=== PATIENT | male | born 1950 | race Caucasian/White ===

== ENCOUNTER 2018-09-17 16:32 | Emergency (ER) | payer OTHER ==
[~2018-09-17] VITALS: Ht 172.7 cm; Wt 73.6 kg
[~2018-09-17 16:32] MED LIST: ASPI81TA3; GLUC850T; GLUCOSAMINE; HYDR25TA6; LISI20TA5; THERGRAN
--- NOTE | 2018-09-17 17:10 | REP ---
Clinical: Altered mental status and possible acute cerebrovascular accident . Findings: Age-related atrophy and microvascular ischemic changes are appreciated. The ventricles and sulci are symmetric. Thorne-white differentiation is maintained. There is no evidence for acute intracranial hemorrhage, mass/mass effect, pathology or infarction. No extra-axial fluid collection. Calvarium is intact. Paranasal sinuses and mastoid air cells are clear. Impression: Atrophy and microvascular ischemic changes. No acute intracranial hemorrhage, infarction, or mass/mass effect. Electronically Signed by Gary Moise MD 09/17/2018 05:02 P
[2018-09-17 17:11] LABS: BASO # 0.1 10^3/uL (0.0-0.2); BASO % 0.3 % (0.0-1.0); EOS # 0.1 10^3/uL (0.0-0.50); EOS % 0.3 % (0.0-3.0); HEMATOCRIT 44.8 % (42.0-52.0); HEMOGLOBIN 14.5 g/dl (13.5-17.5); LYMPH # 1.3 10^3/uL (1.5-4.5); LYMPH % 5.4 % (24.0-44.0); MEAN CORPUSCULAR HEMOGLOBIN 31.2 pg (27.0-33.0); MEAN CORPUSCULAR HGB CONC 32.4 g/dl (32.0-36.5); MEAN CORPUSCULAR VOLUME 96.3 fl (80.0-96.0); MONO # 1.6 10^3/uL (0.0-0.8); MONO % 6.3 % (0.0-5.0); NEUTROPHILS # 21.6 10^3/uL (1.8-7.7); NEUTROPHILS % 86.8 % (36.0-66.0); PLATELET COUNT, AUTOMATED 362 10^3/uL (150-450); RED BLOOD COUNT 4.65 10^6/uL (4.30-6.10); WHITE BLOOD COUNT 24.8 10^3/uL (4.0-10.0)
--- NOTE | 2018-09-17 17:12 | REP ---
Clinical: Altered mental status. Cerebrovascular accident . Comparison: 10/16/2008 . Findings: The mediastinum and cardiac silhouette are stable and within normal limits for portable technique. The lung perez demonstrate chronic-appearing changes without acute consolidation, effusion, or pneumothorax. Skeletal structures are intact. Impression: Chronic-appearing changes. Electronically Signed by Gary Moise MD 09/17/2018 05:04 P
[2018-09-17 17:20] LABS: INR 0.94; PROTHROMBIN TIME 12.7 SECONDS (12.1-14.4)
[2018-09-17 17:21] LABS: PARTIAL THROMBOPLASTIN TIME 29.2 SECONDS (25.4-37.6)
[2018-09-17] MEDS ORDERED: ISOVUE-370 76% 100ML VIAL (Q9967) As Ordered ONE (17:26)
[2018-09-17] MEDS ORDERED: NS 500 ML IV ONE (17:30)
[2018-09-17] MEDS ORDERED: ADACEL/BOOSTRIX VACCINE (DIPHTH/PERTUSS/ACELL/TETANUS)0.5ML SYR (90715) IM ONE (17:30)
[2018-09-17 17:44] LABS: CALCIUM LEVEL 9.3 MG/DL (8.8-10.2); CREATININE FOR GFR 1.7 MG/DL (0.70-1.30); GLOMERULAR FILTRATION RATE 42.6 (>42); MB/CK RELATIVE INDEX 6.6 (< OR =4); POTASSIUM SERUM 4.1 MEQ/L (3.5-5.1); TROPONIN I 0.12 NG/ML (< 0.10)
[2018-09-17] MEDS ORDERED: CLONI1TA PO (17:52)
[2018-09-17] MEDS ORDERED: HEAL1TAB PO (17:52)
[2018-09-17] MEDS ORDERED: FURO20TA2 PO (17:52)
[2018-09-17] MEDS ORDERED: METO100T5 PO (17:52)
[2018-09-17] MEDS ORDERED: AMLO10TA5 PO (17:52)
[2018-09-17] MEDS ORDERED: ROSU40TA3 PO (17:52)
[2018-09-17] MEDS ORDERED: MVI,5VIA5 IV (17:52)
[2018-09-17] MEDS ORDERED: D3 H2000 PO (17:52)
[2018-09-17] MEDS ORDERED: TURM500C PO (17:52)
[2018-09-17 18:09] LABS: ALBUMIN 3.7 GM/DL (3.2-5.2); BILIRUBIN,TOTAL 0.2 MG/DL (0.2-1.0); TOTAL PROTEIN 7.5 GM/DL (6.4-8.2)
[2018-09-17 18:14] VITALS: BP 178/82
--- NOTE | 2018-09-17 18:16 | REP ---
Clinical: Weakness. Technique: Axial contrast enhanced images of the head that using angiographic technique with 100 ml Isovue 370 intravenous contrast material. Findings: Arterial vasculature including lime of Amaya and posterior circulation as well as a circulation to the bilateral hemispheres is symmetric and normal. Impression: Normal CT angiography of the head. Electronically Signed by Gary Moise MD 09/17/2018 06:08 P
--- NOTE | 2018-09-17 18:20 | REP ---
Clinical: Weakness. Technique: Axial contrast enhanced images of the neck using angiographic technique with multiplanar re-formations. 100 ml Isovue 370 intravenous contrast material administered without complication. Findings: The bilateral common carotid arteries as well as the internal and external carotid arteries from the level of the thoracic arch to the mid brain demonstrate symmetric normal enhancement. Mild atherosclerotic changes at the level of the right carotid bulb identified. The vertebral basilar system appears symmetric and normal bilaterally moderate atherosclerotic calcifications noted at the level of the skull base. Impression: Minimal atherosclerotic plaquing noted. Enhancement of the bilateral carotid arteries and vertebral arteries are relatively normal and without evidence for significant areas of stenosis or occlusion. Electronically Signed by Gary Moise MD 09/17/2018 06:11 P
--- NOTE | 2018-09-17 21:01 | ECGEPIP ---
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
== END 2018-09-17 18:18 | disposition short-term general hospital (02) ==
LOC: M ED 16:32
DX: I63.9 Cerebral infarction, unspecified (principal); R00.0 Tachycardia, unspecified; I25.10 Atherosclerotic heart disease of native coronary artery without angina pectoris; E11.9 Type 2 diabetes mellitus without complications; I10 Essential (primary) hypertension; Z95.5 Presence of coronary angioplasty implant and graft; Z72.0 Tobacco use; Z79.82 Long term (current) use of aspirin; Z79.84 Long term (current) use of oral hypoglycemic drugs; Z79.899 Other long term (current) drug therapy; Z88.0 Allergy status to penicillin
CPT/HCPCS: 70450; 70496; 70498; 71045; 80053; 82550; 82553; 83605; 84484; 85025; 85610; 85730; 86850; 86900; 86901; 87040; 90471; 90715; 93005; 93041; 94760; 99291; Q9967

== ENCOUNTER → 2021-03-23 | Outpatient (CLI) | payer OTHER ==
[~2021-03-23] MED LIST changes: +AMLO1TAB25 PO; +CLONI1TA PO; +D3 H2000 PO; +FURO20TA2 PO; +HEAL1TAB PO; +METO100T5 PO; +MVI,5VIA5 IV; +ROSU40TA4 PO; +TURM500C PO
== END ==
LOC: M SLEEP 20:00
PROVIDERS: ATTEND Internal Medicine
DX: G47.33 Obstructive sleep apnea (adult) (pediatric) (principal)

== ENCOUNTER → 2021-06-16 | Outpatient (CLI) | payer OTHER | LOC: M SLEEP 20:00 | PROVIDERS: ATTEND Internal Medicine | DX: G47.33 Obstructive sleep apnea (adult) (pediatric) (principal) ==

== ENCOUNTER → 2022-07-16 | Outpatient (CLI) | payer MEDICARE, OTHER ==
[~2022-07-16] MED LIST changes: +ASPI81CH33 PO; +BICA50TA9 PO; +CARV25TA PO; +DOXA1TAB67 PO; +FINA5TAB2 PO; +FLOM0.4C39 PO; +IRON65TA2 PO; +ISOS1TAB35 PO; +JANU25TA PO; +LISI5TAB11 PO; +MIRT-62 PO; +NESI12.5 PO; +PRES10CA2 PO; +PROZ20CA11 PO
== END ==
LOC: M ONCR 14:14
PROVIDERS: ATTEND General Practice
DX: C61 Malignant neoplasm of prostate (principal)

== ENCOUNTER → 2022-07-16 | Outpatient (CLI) | payer MEDICARE, OTHER ==
[2022-07-16 15:06] LABS: BASO % 0.4 % (0.0-1.0); EOS # 0.2 10^3/uL (0.0-0.5); EOS % 2.3 % (0.0-3.0); HEMATOCRIT 41.6 % (42.0-52.0); HEMOGLOBIN 12.7 g/dl (13.5-17.5); LYMPH # 0.7 10^3/uL (1.5-5.0); LYMPH % 9.5 % (24.0-44.0); MEAN CORPUSCULAR HEMOGLOBIN 28.9 pg (27.0-33.0); MEAN CORPUSCULAR HGB CONC 30.5 g/dl (32.0-36.5); MEAN CORPUSCULAR VOLUME 94.8 fl (80.0-96.0); MONO # 0.5 10^3/uL (0.0-0.8); MONO % 6.9 % (2.0-8.0); NEUTROPHILS # 5.5 10^3/uL (1.5-8.5); NEUTROPHILS % 80.5 % (36.0-66.0); PLATELET COUNT, AUTOMATED 141 10^3/uL (150-450); RED BLOOD COUNT 4.39 10^6/uL (4.30-6.10); WHITE BLOOD COUNT 6.9 10^3/uL (4.0-10.0)
[2022-07-16 15:20] LABS: PROSTATIC SPECIFIC AG MONITOR 6.15 NG/ML (< 4.00)
[2022-07-16 15:22] LABS: BILIRUBIN,TOTAL 0.4 MG/DL (0.3-1.2); CALCIUM LEVEL 8.5 MG/DL (8.3-10.6); CHOLESTEROL RISK RATIO 2.57 (<5); CREATININE FOR GFR 1.85 MG/DL (0.70-1.30); GLOMERULAR FILTRATION RATE 38.2 (>42); HDL CHOLESTEROL 34.2 MG/DL (>40); LDL CHOLESTEROL 18.6 MG/DL (<100); NON-HDL-C 53.8 MG/DL; POTASSIUM SERUM 4.7 MMOL/L (3.5-5.1); TOTAL PROTEIN 7.1 G/DL (5.7-8.2)
== END ==
LOC: M ONCR 13:15
PROVIDERS: ATTEND General Practice
DX: C61 Malignant neoplasm of prostate (principal); E11.9 Type 2 diabetes mellitus without complications; J44.9 Chronic obstructive pulmonary disease, unspecified; N18.30 Chronic kidney disease, stage 3 unspecified; Z65.5 Exposure to disaster, war and other hostilities; Z79.82 Long term (current) use of aspirin; Z79.84 Long term (current) use of oral hypoglycemic drugs; Z79.899 Other long term (current) drug therapy; Z80.42 Family history of malignant neoplasm of prostate; Z80.8 Family history of malignant neoplasm of other organs or systems; Z86.73 Personal history of transient ischemic attack (TIA), and cerebral infarction without residual deficits; Z86.79 Personal history of other diseases of the circulatory system; Z87.891 Personal history of nicotine dependence; Z88.0 Allergy status to penicillin; Z95.5 Presence of coronary angioplasty implant and graft; Z99.3 Dependence on wheelchair
CPT/HCPCS: 36415; 80053; 80061; 83036; 84153; 84403; 85025; G0463

== ENCOUNTER → 2022-07-29 | Outpatient (CLI) | payer MEDICARE, OTHER ==
[~2022-07-29] MED LIST changes: +LEUPROLIDE 22.5 MG IM ONE; +TRIA1CR80 TOP
== END ==
LOC: M ONCR 15:15
PROVIDERS: ATTEND General Practice
DX: C61 Malignant neoplasm of prostate (principal)
CPT/HCPCS: 96402; G0463; J9217

== ENCOUNTER 2022-08-22 15:11 | Outpatient (RCR) | payer MEDICARE, OTHER ==
[~2022-08-22 15:11] MED LIST changes: -LEUPROLIDE 22.5 MG IM ONE
== END 2022-08-24 ==
LOC: M ONCR 15:11
PROVIDERS: ATTEND General Practice
DX: C61 Malignant neoplasm of prostate (principal)

== ENCOUNTER 2022-09-16 13:59 | Outpatient (RCR) | payer OTHER | END 2022-09-24 | LOC: M ONCR 13:59 | PROVIDERS: ATTEND General Practice | DX: C61 Malignant neoplasm of prostate (principal) ==

== ENCOUNTER → 2022-09-16 | Outpatient (CLI) | payer OTHER, MEDICARE | LOC: M RAD 12:27 | DX: I73.9 Peripheral vascular disease, unspecified (principal) ==

== ENCOUNTER → 2022-10-29 | Outpatient (CLI) | payer MEDICARE, OTHER ==
[~2022-10-29] VITALS: Ht 175.3 cm; Wt 73.6 kg
[~2022-10-29] MED LIST changes: +LEUPROLIDE 22.5 MG IM ONE
[2022-10-29 15:12] VITALS: BP 132/64; O2SAT 91
== END ==
LOC: M ONCR 14:39
PROVIDERS: ATTEND General Practice
DX: C61 Malignant neoplasm of prostate (principal); Z79.818 Long term (current) use of other agents affecting estrogen receptors and estrogen levels; Z92.3 Personal history of irradiation
CPT/HCPCS: G0463; J9217

== ENCOUNTER → 2022-12-17 | Outpatient (CLI) | payer OTHER, MEDICARE ==
[~2022-12-17] MED LIST changes: -LEUPROLIDE 22.5 MG IM ONE
[2022-12-17 17:03] LABS: PROSTATIC SPECIFIC AG MONITOR 0.04 NG/ML (< 4.00)
[2022-12-17 17:09] LABS: TESTOSTERONE < 7 NG/DL (241-827)
== END ==
LOC: M ONCR 14:46
PROVIDERS: ATTEND General Practice
DX: C61 Malignant neoplasm of prostate (principal)

== ENCOUNTER → 2022-12-22 | Outpatient (CLI) | payer MEDICARE, OTHER | LOC: M ONCR 14:02 | PROVIDERS: ATTEND General Practice | DX: C61 Malignant neoplasm of prostate (principal); Z79.818 Long term (current) use of other agents affecting estrogen receptors and estrogen levels; Z92.3 Personal history of irradiation; Z87.891 Personal history of nicotine dependence; Z88.0 Allergy status to penicillin; Z79.82 Long term (current) use of aspirin; S32.010A Wedge compression fracture of first lumbar vertebra, initial encounter for closed fracture; X58.XXXA Exposure to other specified factors, initial encounter ==

== ENCOUNTER → 2023-01-29 | Outpatient (CLI) | payer MEDICARE, OTHER ==
[~2023-01-29] MED LIST changes: +LEUPROLIDE 45MG SYRINGE KIT (LUPRON DEPOT) (FOR ONCOLOGY) IM ONE; -MIRT-62 PO; +MIRT-88 PO
== END ==
LOC: M ONCR 15:21
PROVIDERS: ATTEND General Practice
DX: C61 Malignant neoplasm of prostate (principal); R23.2 Flushing; Z71.2 Person consulting for explanation of examination or test findings; Z79.818 Long term (current) use of other agents affecting estrogen receptors and estrogen levels; Z79.82 Long term (current) use of aspirin; Z79.84 Long term (current) use of oral hypoglycemic drugs; Z87.891 Personal history of nicotine dependence; Z79.899 Other long term (current) drug therapy; Z88.0 Allergy status to penicillin; Z88.1 Allergy status to other antibiotic agents; Z92.3 Personal history of irradiation
CPT/HCPCS: 96402; G0463; J9217

== ENCOUNTER → 2023-02-10 | Outpatient (CLI) | payer OTHER ==
[~2023-02-10] MED LIST changes: -LEUPROLIDE 45MG SYRINGE KIT (LUPRON DEPOT) (FOR ONCOLOGY) IM ONE
== END ==
LOC: M SOG 07:52
PROVIDERS: ATTEND Physician Assistant
DX: M25.531 Pain in right wrist (principal); M19.031 Primary osteoarthritis, right wrist

== ENCOUNTER 2023-03-16 14:54 | Observation (INO) | payer MEDICARE, OTHER ==
[~2023-03-16] VITALS: Ht 172.7 cm; Wt 67.1 kg
[~2023-03-16 14:54] MED LIST changes: +ALBU2.5V10 NEB; +JARD1TAB3 PO; +LUPR22.5 IM; +MUCI600T31 PO; +VITA100093 PO
[2023-03-16 16:43] LABS: BASO % 0.3 % (0.0-1.0); EOS # 0.1 10^3/uL (0.0-0.5); EOS % 2.4 % (0.0-3.0); LYMPH # 0.2 10^3/uL (1.5-5.0); LYMPH % 6.2 % (24.0-44.0); MEAN CORPUSCULAR HEMOGLOBIN 31.9 pg (27.0-33.0); MEAN CORPUSCULAR HGB CONC 31.3 g/dl (32.0-36.5); MEAN CORPUSCULAR VOLUME 102.1 fl (80.0-96.0); MONO # 0.3 10^3/uL (0.0-0.8); MONO % 9.5 % (2.0-8.0); NEUTROPHILS # 2.7 10^3/uL (1.5-8.5); PLATELET COUNT, AUTOMATED 106 10^3/uL (150-450); RED BLOOD COUNT 1.91 10^6/uL (4.30-6.10); WHITE BLOOD COUNT 3.4 10^3/uL (4.0-10.0)
[2023-03-16 16:59] LABS: HEMATOCRIT 19.5 % (42.0-52.0); HEMOGLOBIN 6.1 g/dl (13.5-17.5)
[2023-03-16 17:08] LABS: INR 1.21
[2023-03-16 17:09] LABS: PARTIAL THROMBOPLASTIN TIME 32.5 SECONDS (24.8-34.2)
[2023-03-16 17:13] LABS: CALCIUM LEVEL 9.1 MG/DL (8.3-10.6); CREATININE FOR GFR 2.22 MG/DL (0.70-1.30); GLOMERULAR FILTRATION RATE 30.9 (>42); POTASSIUM SERUM 3.7 MMOL/L (3.5-5.1)
[2023-03-16 18:30] VITALS: BP 111/56; TEMP 98.4; O2SAT 100
[2023-03-16 18:30] LABS: ALBUMIN 2.9 G/DL (3.2-5.2); ALKALINE PHOSPHATASE 47 U/L (46-116); ALT/SGPT < 9 U/L (7.0-40); AST/SGOT < 8 U/L (<34); BILIRUBIN,DIRECT < 0.1 MG/DL (<0.4); BILIRUBIN,TOTAL 0.2 MG/DL (0.3-1.2); TOTAL PROTEIN 5.6 G/DL (5.7-8.2)
[2023-03-16 18:46] VITALS: BP 116/56; TEMP 97.3; O2SAT 100
[2023-03-16 20:28] VITALS: BP 132/63; TEMP 97.2
[2023-03-16] MEDS ORDERED: MED REC IN PROGRESS XX SCH (20:40)
[2023-03-16 20:44] VITALS: BP 127/61; TEMP 96.9; O2SAT 91
[2023-03-16 21:15] VITALS: BP 127/58; TEMP 97.1; O2SAT 94
[2023-03-16] MEDS ORDERED: NICO4LOZ34 MT (21:15)
[2023-03-16] MEDS ORDERED: HOME MED LIST COMPLETE! XX SCH (21:20)
[2023-03-16] MEDS ORDERED: AMLO1TAB25 PO (21:27)
[2023-03-16] MEDS ORDERED: ASPI81TA26 PO (21:28)
[2023-03-16] MEDS ORDERED: CARV25TA PO (21:29)
[2023-03-16] MEDS ORDERED: DOXA1TAB67 PO (21:30)
[2023-03-16] MEDS ORDERED: FERR325T3 PO (21:31)
[2023-03-16] MEDS ORDERED: FINA5TAB2 PO (21:32)
[2023-03-16] MEDS ORDERED: FLUO20CA22 PO (21:33)
[2023-03-16] MEDS ORDERED: LISI5TAB11 PO (21:34)
[2023-03-16] MEDS ORDERED: MIRT1TAB15 PO (21:35)
[2023-03-16] MEDS ORDERED: ROSU40TA4 PO (21:36)
[2023-03-16] MEDS ORDERED: ACETAMINOPHEN TAB 650MG DOSE (2X325MG) PO PRN (21:55)
[2023-03-16] MEDS ORDERED: ALBUTEROL SULFATE 2.5MG/0.5ML INH NEB SOLN NEB PRN (22:00)
[2023-03-16 23:40] VITALS: BP 142/63; TEMP 97.4; O2SAT 90
[2023-03-17] MEDS ORDERED: GLUCOSE 4GM CHEW TABLET PO PRN (00:05)
[2023-03-17] MEDS ORDERED: DEXTROSE 50% 50ML SYRINGE IV PRN (00:05)
[2023-03-17] MEDS ORDERED: GLUCAGON INJ 1MG VIAL SC PRN (00:05)
[2023-03-17 00:53] LABS: HEMATOCRIT 25.5 % (42.0-52.0); HEMOGLOBIN 7.9 g/dl (13.5-17.5)
[2023-03-17 00:58] LABS: PERCENT SATURATION 67.7 % (19.7-50.0)
[2023-03-17 01:01] LABS: FOLATE 16.88 NG/ML (>5.4)
[2023-03-17 04:00] VITALS: BP 130/59; TEMP 97.7; O2SAT 92
[2023-03-17 04:57] LABS: HEMOGLOBIN 7.9 g/dl (13.5-17.5); MEAN CORPUSCULAR HEMOGLOBIN 30.7 pg (27.0-33.0); MEAN CORPUSCULAR HGB CONC 31.6 g/dl (32.0-36.5); MEAN CORPUSCULAR VOLUME 97.3 fl (80.0-96.0); PLATELET COUNT, AUTOMATED 110 10^3/uL (150-450); RED BLOOD COUNT 2.57 10^6/uL (4.30-6.10); WHITE BLOOD COUNT 4.1 10^3/uL (4.0-10.0)
[2023-03-17 05:21] LABS: CALCIUM LEVEL 9.2 MG/DL (8.3-10.6); CREATININE FOR GFR 2.01 MG/DL (0.70-1.30); GLOMERULAR FILTRATION RATE 34.6 (>42); MAGNESIUM LEVEL 1.9 MG/DL (1.8-2.4); POTASSIUM SERUM 3.5 MMOL/L (3.5-5.1)
[2023-03-17 07:09] LABS: FOLATE 15.2 NG/ML (>5.4)
[2023-03-17] MEDS: INSULIN LISPRO (NovoLOG) PER UNIT SC SCH ×2 (07:30→12:00)
[2023-03-17 07:47] VITALS: BP 125/57; TEMP 97.5; O2SAT 90
[2023-03-17 08:29] VITALS: BP 129/57
[2023-03-17] MEDS ORDERED: lisinopriL 5 MG TAB PO SCH (09:00)
[2023-03-17] MEDS ORDERED: DOXAZOSIN MESYLATE 4 MG TAB PO SCH (09:00)
[2023-03-17] MEDS ORDERED: FINASTERIDE 5MG TAB PO SCH (09:00)
[2023-03-17] MEDS ORDERED: VITAMIN D 1,000 INTERNATIONAL UNITS TABLET PO SCH (09:00)
[2023-03-17] MEDS ORDERED: ISOSORBIDE MON. (IMDUR) 30MG XR TAB PO SCH (09:00)
[2023-03-17] MEDS ORDERED: ROSUVASTATIN 10 MG TAB (CRESTOR) PO SCH (09:00)
[2023-03-17] MEDS ORDERED: FLUoxetine 20MG CAP PO SCH (09:00)
[2023-03-17] MEDS ORDERED: TAMSULOSIN 0.4 MG CAP PO SCH (09:00)
[2023-03-17] MEDS ORDERED: FERROUS SULFATE 325MG TAB PO SCH (09:00)
[2023-03-17] MEDS ORDERED: NICOTINE 14 MG/24 HR TRANSDERMAL TD SCH (09:00)
[2023-03-17] MEDS ORDERED: PROTPAK PO (10:38)
[2023-03-17 11:40] VITALS: BP 125/55; TEMP 97.6; O2SAT 92
[2023-03-17] MEDS ORDERED: PROT1TAB2 PO (11:49)
[2023-03-17] MEDS ORDERED: INSULIN LISPRO (NovoLOG) PER UNIT SC SCH (21:00)
== END 2023-03-17 13:46 | disposition home or self-care (01) ==
LOC: M ED 14:54 → INTOOBSV 21:07 → M ED INP 21:07 → M PCU 23:05
PROVIDERS: ADMIT Internal Medicine; ATTEND Internal Medicine
DX: D64.9 Anemia, unspecified (principal); N18.32 Chronic kidney disease, stage 3b; I12.9 Hypertensive chronic kidney disease with stage 1 through stage 4 chronic kidney disease, or unspecified chronic kidney disease; Z85.46 Personal history of malignant neoplasm of prostate; I25.10 Atherosclerotic heart disease of native coronary artery without angina pectoris; Z98.61 Coronary angioplasty status; G47.33 Obstructive sleep apnea (adult) (pediatric); Z87.891 Personal history of nicotine dependence; Z86.73 Personal history of transient ischemic attack (TIA), and cerebral infarction without residual deficits; D47.2 Monoclonal gammopathy; E11.9 Type 2 diabetes mellitus without complications; F32.A Depression, unspecified; E78.5 Hyperlipidemia, unspecified; Z79.82 Long term (current) use of aspirin; Z79.899 Other long term (current) drug therapy; Z88.0 Allergy status to penicillin
CPT/HCPCS: 36415; 36430; 80048; 80076; 80503; 82607; 82728; 82746; 83550; 83735; 85014; 85018; 85025; 85027; 85046; 85610; 85730; 86850; 86900; 86901; 86920; 87486; 87581; 87633; 87798; 93005; 97161; 97165; 97530; 99285; G0378; P9016

== ENCOUNTER → 2023-03-24 | Outpatient (CLI) | payer OTHER, MEDICARE ==
[~2023-03-24] MED LIST changes: +ASPI81TA26 PO; +FERR325T3 PO; +FLUO20CA22 PO; +MIRT1TAB15 PO; +NICO4LOZ34 MT; +PROT1TAB2 PO; +PROTPAK PO
== END ==
LOC: M ONCR 14:09
PROVIDERS: ATTEND General Practice
DX: D64.9 Anemia, unspecified (principal); D47.2 Monoclonal gammopathy; C61 Malignant neoplasm of prostate; Z79.818 Long term (current) use of other agents affecting estrogen receptors and estrogen levels; Z92.3 Personal history of irradiation

== ENCOUNTER → 2023-04-13 | Outpatient (REF) | payer OTHER ==
[~2023-04-13] MED LIST changes: +CEPH500C PO; +CETI10CH PO; +FAMO20TA PO; +FERR324T21 PO; +LISI10TA22 PO; +NITR0.4S14 SL; +REFR0.5D8 OP
== END ==
LOC: M LAB REF 09:30
PROVIDERS: ATTEND Specialist
DX: D47.2 Monoclonal gammopathy (principal)

== ENCOUNTER 2023-05-04 07:09 | Day surgery (SDC) | payer MEDICARE, OTHER ==
[~2023-05-04] VITALS: Ht 172.7 cm; Wt 70.9 kg
[~2023-05-04 07:09] MED LIST changes: +LIDOCAINE W/EPINEPHRINE 1% 20ML VIAL XX ONE; +OCUVTAB4 PO; +SODIUM BICARBONATE 8.4% INJ 50MEQ 50ML VIAL XX ONE
[2023-05-04] MEDS ORDERED: BACITRACIN OINTMENT 30GM TUBE As Ordered ONE (07:50)
[2023-05-04 08:41] VITALS: BP 136/65; TEMP 97.3; O2SAT 95
== END 2023-05-04 09:05 | disposition home or self-care (01) ==
LOC: M SDC 07:09
PROVIDERS: ATTEND Orthopaedic Surgery Hand Surgery
DX: G56.01 Carpal tunnel syndrome, right upper limb (principal); I25.10 Atherosclerotic heart disease of native coronary artery without angina pectoris; I25.2 Old myocardial infarction; Z98.61 Coronary angioplasty status; I12.9 Hypertensive chronic kidney disease with stage 1 through stage 4 chronic kidney disease, or unspecified chronic kidney disease; N18.30 Chronic kidney disease, stage 3 unspecified; E11.9 Type 2 diabetes mellitus without complications; E78.5 Hyperlipidemia, unspecified; K21.9 Gastro-esophageal reflux disease without esophagitis; Z86.73 Personal history of transient ischemic attack (TIA), and cerebral infarction without residual deficits; G47.33 Obstructive sleep apnea (adult) (pediatric); Z92.3 Personal history of irradiation; Z79.51 Long term (current) use of inhaled steroids; Z87.891 Personal history of nicotine dependence; Z88.0 Allergy status to penicillin; Z88.8 Allergy status to other drugs, medicaments and biological substances; J44.9 Chronic obstructive pulmonary disease, unspecified

== ENCOUNTER 2023-06-15 13:02 | Outpatient (CLI) | payer MEDICARE, OTHER ==
[~2023-06-15] VITALS: Ht 170.2 cm; Wt 69.0 kg
[2023-06-15] VITALS (7 sets, daily range): BP systolic 64–138; BP diastolic 57–88; TEMP 97–97.9; O2SAT 93–100
[~2023-06-15 13:02] MED LIST changes: -LIDOCAINE W/EPINEPHRINE 1% 20ML VIAL XX ONE; -SODIUM BICARBONATE 8.4% INJ 50MEQ 50ML VIAL XX ONE
[2023-06-15] MEDS: ACETAMINOPHEN TAB 650MG DOSE (2X325MG) PO ONE (13:52)
== END 2023-06-15 18:30 ==
LOC: M INFU 13:02
PROVIDERS: ATTEND Specialist
DX: D47.2 Monoclonal gammopathy (principal); Z88.0 Allergy status to penicillin; Z88.8 Allergy status to other drugs, medicaments and biological substances
CPT/HCPCS: 36415; 36430; 80053; 85025; 86850; 86900; 86901; 86920; G0463; P9016

== ENCOUNTER → 2023-08-12 | Outpatient (CLI) | payer OTHER, MEDICARE ==
[~2023-08-12] MED LIST changes: +AMLO25TA PO; +CARV12.5 PO; +CYCL1CAP2 PO; +DEXA4TA PO; +JARD1TAB PO; +ONDA-84 PO
== END ==
LOC: M RAD 15:19
PROVIDERS: ATTEND Specialist
DX: S42.002A Fracture of unspecified part of left clavicle, initial encounter for closed fracture (principal); C90.00 Multiple myeloma not having achieved remission

== ENCOUNTER 2023-08-14 13:50 | Outpatient (CLI) | payer OTHER, MEDICARE ==
[~2023-08-14] VITALS: Ht 170.2 cm; Wt 64.0 kg
[~2023-08-14 13:50] MED LIST changes: -REFR0.5D8 OP; +REFR0.5D8 OU
[2023-08-14] MEDS: ACETAMINOPHEN TAB 650MG DOSE (2X325MG) PO ONE (14:02)
[2023-08-14 14:16] VITALS: BP 139/65; TEMP 97.8; O2SAT 99
[2023-08-14 14:18] VITALS: BP 139/65; TEMP 97.8; O2SAT 99
[2023-08-14 14:40] VITALS: BP 139/65; TEMP 97.8; O2SAT 99
[2023-08-14 15:20] VITALS: BP 140/62; TEMP 98; O2SAT 99
[2023-08-14 15:56] VITALS: BP 145/69; TEMP 98.3; O2SAT 97
== END 2023-08-14 16:10 | disposition home or self-care (01) ==
LOC: M INFU 13:50
PROVIDERS: ATTEND Specialist
DX: D47.2 Monoclonal gammopathy (principal); Z88.0 Allergy status to penicillin; Z88.8 Allergy status to other drugs, medicaments and biological substances

== ENCOUNTER 2023-08-17 12:32 | Inpatient (IN) | payer OTHER, MEDICARE ==
[2023-08-17 13:36] VITALS: BP 97/53; TEMP 97.5; O2SAT 79; O2SAT 91
[2023-08-17] MEDS: DOCUSATE SODIUM 100MG CAPSULE PO SCH (15:00)
[2023-08-17] MEDS ORDERED: MIRT-88 PO (15:28)
[2023-08-17] MEDS ORDERED: TUME1CAP PO (15:28)
[2023-08-17] MEDS ORDERED: CETI-24 PO (15:28)
[2023-08-17] MEDS ORDERED: EQL50TAB2 PO (15:29)
[2023-08-17] MEDS ORDERED: ACET650T3 PO (15:29)
[2023-08-17] MEDS ORDERED: HOME MED LIST COMPLETE! XX SCH (15:30)
[2023-08-17 15:53] VITALS: BP 102/54; TEMP 98.8; O2SAT 95
[2023-08-17 18:50] VITALS: BP 116/56; TEMP 98.8; O2SAT 97
[2023-08-17] MEDS ORDERED: ALBUTEROL SULFATE 2.5MG/0.5ML INH NEB SOLN NEB PRN (18:55)
[2023-08-17] MEDS: SODIUM CHLORIDE 0.9% 1000ML IV ONE (19:20)
[2023-08-17] MEDS: MIRTAZAPINE 15 MG TAB PO SCH (21:29)
[2023-08-17] MEDS: FERROUS GLUCONATE 324 MG TAB PO SCH (21:29)
[2023-08-17] MEDS: CARVedilol 3.125 MG TAB PO SCH (21:29)
[2023-08-17] MEDS: TAMSULOSIN 0.4 MG CAP PO SCH (21:29)
[2023-08-18] VITALS (7 sets, daily range): BP systolic 108–142; BP diastolic 54–68; TEMP 97.8–98.5; O2SAT 96–98
[2023-08-18] MEDS: ACETAMINOPHEN TAB 650MG DOSE (2X325MG) PO PRN (02:30)
[2023-08-18 06:37] LABS: EOS % 0.9 % (0.0-3.0); HEMATOCRIT 27.8 % (42.0-52.0); HEMOGLOBIN 8.5 g/dl (13.5-17.5); LYMPH # 0.1 10^3/uL (1.5-5.0); MEAN CORPUSCULAR HEMOGLOBIN 30.4 pg (27.0-33.0); MEAN CORPUSCULAR HGB CONC 30.6 g/dl (32.0-36.5); MEAN CORPUSCULAR VOLUME 99.3 fl (80.0-96.0); MONO # 0.6 10^3/uL (0.0-0.8); MONO % 13.7 % (2.0-8.0); NEUTROPHILS # 3.8 10^3/uL (1.5-8.5); WHITE BLOOD COUNT 4.7 10^3/uL (4.0-10.0)
[2023-08-18 06:42] LABS: PLATELET COUNT, AUTOMATED 74 10^3/uL (150-450)
[2023-08-18 07:08] LABS: CALCIUM LEVEL 8.3 MG/DL (8.3-10.6); CREATININE FOR GFR 2.13 MG/DL (0.70-1.30); GLOMERULAR FILTRATION RATE 32.4 (>42); POTASSIUM SERUM 3.7 MMOL/L (3.5-5.1)
[2023-08-18] MEDS: ISOSORBIDE MON. (IMDUR) 30MG XR TAB PO SCH (08:27)
[2023-08-18] MEDS: VITAMIN D 1,000 INTERNATIONAL UNITS TABLET PO SCH (08:27)
[2023-08-18] MEDS: ASPIRIN 81MG ENTERIC TABLET PO SCH (08:27)
[2023-08-18] MEDS: ROSUVASTATIN 10 MG TAB (CRESTOR) PO SCH (08:27)
[2023-08-18] MEDS: FLUoxetine 20MG CAP PO SCH (08:28)
[2023-08-18] MEDS: guaiFENesin ER TABLET 600 MG TAB PO SCH (08:28)
[2023-08-18] MEDS: FINASTERIDE 5MG TAB PO SCH (08:28)
[2023-08-18] MEDS: FAMOTIDINE 20 MG TAB PO SCH (08:28)
[2023-08-18] MEDS: CETIRIZINE (ZyrTEC) 10 MG TAB PO SCH (08:28)
[2023-08-19 03:40] VITALS: BP 141/79; TEMP 98.4; O2SAT 96
[2023-08-19 05:42] LABS: EOS % 0.5 % (0.0-3.0); HEMATOCRIT 25.9 % (42.0-52.0); HEMOGLOBIN 8.1 g/dl (13.5-17.5); LYMPH # 0.2 10^3/uL (1.5-5.0); LYMPH % 4.5 % (24.0-44.0); MEAN CORPUSCULAR HEMOGLOBIN 30.7 pg (27.0-33.0); MEAN CORPUSCULAR HGB CONC 31.3 g/dl (32.0-36.5); MEAN CORPUSCULAR VOLUME 98.1 fl (80.0-96.0); MONO # 0.6 10^3/uL (0.0-0.8); MONO % 15.1 % (2.0-8.0); NEUTROPHILS % 79.6 % (36.0-66.0); RED BLOOD COUNT 2.64 10^6/uL (4.30-6.10); WHITE BLOOD COUNT 3.8 10^3/uL (4.0-10.0)
[2023-08-19 05:49] LABS: PLATELET COUNT, AUTOMATED 73 10^3/uL (150-450)
[2023-08-19 06:02] LABS: CALCIUM LEVEL 8.7 MG/DL (8.3-10.6); CREATININE FOR GFR 1.82 MG/DL (0.70-1.30); GLOMERULAR FILTRATION RATE 38.9 (>42); POTASSIUM SERUM 3.9 MMOL/L (3.5-5.1)
[2023-08-19 07:30] VITALS: BP 137/67; TEMP 97.6; O2SAT 98
[2023-08-19 16:00] VITALS: BP 134/69; TEMP 98.3; O2SAT 92
[2023-08-19 16:32] VITALS: BP 116/53; TEMP 97.8; O2SAT 95
[2023-08-19 20:04] VITALS: BP 107/53; TEMP 97.4; O2SAT 96
[2023-08-20 04:07] VITALS: BP 129/72; TEMP 97.5; O2SAT 91
[2023-08-20 06:08] LABS: EOS % 1.2 % (0.0-3.0); HEMATOCRIT 27.7 % (42.0-52.0); HEMOGLOBIN 8.4 g/dl (13.5-17.5); LYMPH # 0.1 10^3/uL (1.5-5.0); LYMPH % 3.2 % (24.0-44.0); MEAN CORPUSCULAR HGB CONC 30.3 g/dl (32.0-36.5); MEAN CORPUSCULAR VOLUME 98.9 fl (80.0-96.0); MONO # 0.6 10^3/uL (0.0-0.8); MONO % 16.1 % (2.0-8.0); NEUTROPHILS # 2.7 10^3/uL (1.5-8.5); NEUTROPHILS % 79.2 % (36.0-66.0); WHITE BLOOD COUNT 3.4 10^3/uL (4.0-10.0)
[2023-08-20 06:18] LABS: PLATELET COUNT, AUTOMATED 81 10^3/uL (150-450)
[2023-08-20 06:34] LABS: CALCIUM LEVEL 8.5 MG/DL (8.3-10.6); CREATININE FOR GFR 1.82 MG/DL (0.70-1.30); GLOMERULAR FILTRATION RATE 38.9 (>42); POTASSIUM SERUM 4.2 MMOL/L (3.5-5.1)
[2023-08-20 07:33] VITALS: TEMP 97.6; O2SAT 98
[2023-08-20 08:31] VITALS: BP 140/71; TEMP 97.9; O2SAT 93
[2023-08-20 12:13] VITALS: BP 132/61; TEMP 97.4; O2SAT 99
[2023-08-20] MEDS: LIDOCAINE 5% (LIDODERM) PATCH TD SCH (18:49)
[2023-08-20 20:11] VITALS: BP 112/63; TEMP 97.1; O2SAT 99
[2023-08-20 20:56] VITALS: BP 112/63
[2023-08-20] MEDS: CARVedilol 6.25 MG TAB PO SCH (20:56)
[2023-08-21 03:59] VITALS: BP 129/61; TEMP 97.6; O2SAT 94
[2023-08-21 05:47] LABS: BASO % 0.3 % (0.0-1.0); EOS % 1.3 % (0.0-3.0); HEMATOCRIT 25.7 % (42.0-52.0); HEMOGLOBIN 7.9 g/dl (13.5-17.5); LYMPH # 0.1 10^3/uL (1.5-5.0); LYMPH % 3.7 % (24.0-44.0); MEAN CORPUSCULAR HEMOGLOBIN 30.6 pg (27.0-33.0); MEAN CORPUSCULAR HGB CONC 30.7 g/dl (32.0-36.5); MEAN CORPUSCULAR VOLUME 99.6 fl (80.0-96.0); MONO # 0.5 10^3/uL (0.0-0.8); MONO % 15.3 % (2.0-8.0); NEUTROPHILS # 2.4 10^3/uL (1.5-8.5); NEUTROPHILS % 79.1 % (36.0-66.0); RED BLOOD COUNT 2.58 10^6/uL (4.30-6.10)
[2023-08-21 05:48] LABS: PLATELET COUNT, AUTOMATED 87 10^3/uL (150-450)
[2023-08-21 06:14] LABS: CALCIUM LEVEL 8.6 MG/DL (8.3-10.6); CREATININE FOR GFR 1.61 MG/DL (0.70-1.30); GLOMERULAR FILTRATION RATE 44.8 (>42); POTASSIUM SERUM 3.9 MMOL/L (3.5-5.1)
[2023-08-21 07:34] VITALS: BP 138/64; TEMP 98.7; O2SAT 91
[2023-08-21] MEDS ORDERED: LIDO5TD TD (10:23)
== END 2023-08-21 13:58 | disposition home or self-care (01) | DRG 91 ==
LOC: M PCU 13:19
PROVIDERS: ADMIT Internal Medicine Nephrology; ATTEND Internal Medicine Nephrology
DX: G72.0 Drug-induced myopathy (principal); D61.810 Antineoplastic chemotherapy induced pancytopenia; C90.00 Multiple myeloma not having achieved remission; N18.4 Chronic kidney disease, stage 4 (severe); J96.11 Chronic respiratory failure with hypoxia; I69.354 Hemiplegia and hemiparesis following cerebral infarction affecting left non-dominant side; I95.2 Hypotension due to drugs; R53.1 Weakness; J44.9 Chronic obstructive pulmonary disease, unspecified; I12.9 Hypertensive chronic kidney disease with stage 1 through stage 4 chronic kidney disease, or unspecified chronic kidney disease; E11.22 Type 2 diabetes mellitus with diabetic chronic kidney disease; D63.8 Anemia in other chronic diseases classified elsewhere; G47.33 Obstructive sleep apnea (adult) (pediatric); E11.51 Type 2 diabetes mellitus with diabetic peripheral angiopathy without gangrene; D64.81 Anemia due to antineoplastic chemotherapy; D69.59 Other secondary thrombocytopenia; Z99.81 Dependence on supplemental oxygen; I25.10 Atherosclerotic heart disease of native coronary artery without angina pectoris; Z95.2 Presence of prosthetic heart valve; F32.A Depression, unspecified; Z77.098 Contact with and (suspected) exposure to other hazardous, chiefly nonmedicinal, chemicals; Z99.3 Dependence on wheelchair; Z85.46 Personal history of malignant neoplasm of prostate; Z88.0 Allergy status to penicillin; Z88.8 Allergy status to other drugs, medicaments and biological substances; Z79.82 Long term (current) use of aspirin; Z79.899 Other long term (current) drug therapy

== ENCOUNTER 2023-09-24 05:24 | Inpatient (IN) | payer OTHER, MEDICARE ==
[~2023-09-24] VITALS: Ht 170.2 cm; Wt 70.7 kg
[2023-09-24] VITALS (42 sets, daily range): BP systolic 87–128; BP diastolic 49–60; TEMP 97.3–98.5; O2SAT 92–100
[~2023-09-24 05:24] MED LIST changes: +ACET650T3 PO; +ALBU2.5V10 INH; -ALBU2.5V10 NEB; +BICA50TA4 PO; -BICA50TA9 PO; +CETI-24 PO; +EQL50TAB2 PO; +FLUO-365 PO; -FLUO20CA22 PO; +LIDO5TD TD; +POTA-298 PO; -ROSU40TA4 PO; +ROSU40TA63 PO; +TUME1CAP PO
[2023-09-24] MEDS: NS 1,000 ML IV ONE ×4 (05:35→09:52)
[2023-09-24 06:08] LABS: HEMATOCRIT 29.6 % (42.0-52.0); HEMOGLOBIN 8.6 g/dl (13.5-17.5); MEAN CORPUSCULAR HEMOGLOBIN 29.8 pg (27.0-33.0); MEAN CORPUSCULAR HGB CONC 29.1 g/dl (32.0-36.5); MEAN CORPUSCULAR VOLUME 102.4 fl (80.0-96.0); PLATELET COUNT, AUTOMATED 102 10^3/uL (150-450); RED BLOOD COUNT 2.89 10^6/uL (4.30-6.10); WHITE BLOOD COUNT 4.2 10^3/uL (4.0-10.0)
[2023-09-24 06:20] LABS: CK-MB VALUE MASS < 1.0 NG/ML (<3.6); LIPASE 14 U/L (12-53)
[2023-09-24 06:22] LABS: INR 1.24; PARTIAL THROMBOPLASTIN TIME 35.5 SECONDS (24.8-34.2); PROTHROMBIN TIME 15.2 SECONDS (12.5-14.5)
[2023-09-24 06:23] LABS: ALBUMIN 2.3 G/DL (3.2-5.2); ALKALINE PHOSPHATASE 61 U/L (46-116); ALT/SGPT 17 U/L (7.0-40); AST/SGOT 16 U/L (<34); BILIRUBIN,DIRECT 0.2 MG/DL (<0.4); BILIRUBIN,TOTAL 0.3 MG/DL (0.3-1.2); BLOOD UREA NITROGEN 35 MG/DL (9-23); CALCIUM LEVEL 7.7 MG/DL (8.3-10.6); CARBON DIOXIDE LEVEL 25 MMOL/L (20-31); CHLORIDE LEVEL 103 MMOL/L (98-107); CREATININE FOR GFR 2.04 MG/DL (0.70-1.30); GLOMERULAR FILTRATION RATE 34.1 (>42); GLUCOSE, FASTING 128 MG/DL (74-106); MAGNESIUM LEVEL 1.9 MG/DL (1.8-2.4); POTASSIUM SERUM 3.2 MMOL/L (3.5-5.1); SODIUM LEVEL 137 MMOL/L (136-145); TOTAL PROTEIN 4.7 G/DL (5.7-8.2)
[2023-09-24 06:26] LABS: CPK CREATINE PHOSPHOKINASE 34 U/L (46-171); MB/CK RELATIVE INDEX 2.94 (< OR =4)
[2023-09-24 06:50] LABS: ATYPICAL LYMPH 2 % (0-5); LYMPHOCYTES 1 % (16-44); MONOCYTES 16 % (0-5); NEUTROPHILS 74 % (28-66); PLATELET ESTIMATE DECREASED (NORMAL)
[2023-09-24 06:51] LABS: HYPOCHROMASIA 1+; OVALOCYTES 1+; POIKILOCYTOSIS 2+; TEAR DROP CELLS 1+
[2023-09-24 06:52] LABS: ANISOCYTOSIS 1+; MICROCYTOSIS 1+; POLYCHROMASIA 1+
[2023-09-24 07:50] LABS: CK-MB VALUE MASS < 1.0 NG/ML (<3.6)
[2023-09-24 07:57] LABS: CPK CREATINE PHOSPHOKINASE 30 U/L (46-171); MB/CK RELATIVE INDEX 3.33 (< OR =4)
[2023-09-24] MEDS ORDERED: AMLO2.5T3 PO (11:12)
[2023-09-24] MEDS ORDERED: POTA-151 PO (11:12)
[2023-09-24] MEDS ORDERED: LIDO1PAD TOP (11:12)
[2023-09-24] MEDS ORDERED: LUPR45IN IM (11:12)
[2023-09-24] MEDS ORDERED: DEXA4TA PO (11:12)
[2023-09-24] MEDS ORDERED: RETA1000 IM (11:13)
[2023-09-24] MEDS ORDERED: HOME MED LIST COMPLETE! XX SCH (11:15)
[2023-09-24] MEDS: NOREPINEPHRINE 4MG IN D5 250ML 4 MG in IV 1 EA IV SCH (11:27)
[2023-09-24] MEDS: IPRATROPIUM 0.5MG/ALBUTEROL 2.5MG INH SOL UD 3ML (DUONEB) NEB SCH (12:00)
[2023-09-24] MEDS: ASPIRIN 81MG ENTERIC TABLET PO SCH (14:30)
[2023-09-24] MEDS: VANCOMYCIN 125MG CAPSULE PO SCH (14:30)
[2023-09-24] MEDS: FINASTERIDE 5MG TAB PO SCH (14:30)
[2023-09-24] MEDS: ROSUVASTATIN 10 MG TAB (CRESTOR) PO SCH (14:30)
[2023-09-24] MEDS: metroNIDAZOLE 500 MG in IV 1 EA IV SCH (14:31)
[2023-09-24] MEDS: FLUoxetine 20MG CAP PO SCH (14:31)
[2023-09-24] MEDS: POTASSIUM CHLORIDE 10MEQ SR TABLET PO ONE ×2 (14:31→17:49)
[2023-09-24] MEDS: HEPARIN SOD (PORCINE) 5000UNITS/ML 1ML VIAL/SYRINGE SC SCH (14:31)
[2023-09-24] MEDS: LACTATED RINGER'S 1000 ML IV ONE ×2 (15:52→18:26)
[2023-09-24 16:53] LABS: GLOMERULAR FILTRATION RATE 34.8 (>42); POTASSIUM SERUM 3.1 MMOL/L (3.5-5.1)
[2023-09-24] MEDS: MIRTAZAPINE 15 MG TAB PO SCH (21:00)
[2023-09-24] MEDS: FERROUS GLUCONATE 324 MG TAB PO SCH (21:00)
[2023-09-24] MEDS: ISOSORBIDE MON. (IMDUR) 30MG XR TAB PO SCH (21:00)
[2023-09-25] VITALS (93 sets, daily range): BP systolic 80–135; BP diastolic 42–62; TEMP 97.9–98.5; O2SAT 87–100
[2023-09-25 04:59] LABS: HEMATOCRIT 30.5 % (42.0-52.0); HEMOGLOBIN 8.9 g/dl (13.5-17.5); MEAN CORPUSCULAR HEMOGLOBIN 30.8 pg (27.0-33.0); MEAN CORPUSCULAR HGB CONC 29.2 g/dl (32.0-36.5); MEAN CORPUSCULAR VOLUME 105.5 fl (80.0-96.0); RED BLOOD COUNT 2.89 10^6/uL (4.30-6.10); WHITE BLOOD COUNT 5.8 10^3/uL (4.0-10.0)
[2023-09-25 05:03] LABS: PLATELET COUNT, AUTOMATED 93 10^3/uL (150-450)
[2023-09-25 05:50] LABS: ALBUMIN 1.9 G/DL (3.2-5.2); BILIRUBIN,TOTAL 0.2 MG/DL (0.3-1.2); CALCIUM LEVEL 6.9 MG/DL (8.3-10.6); CREATININE FOR GFR 2.24 MG/DL (0.70-1.30); GLOMERULAR FILTRATION RATE 30.6 (>42); TOTAL PROTEIN 4.1 G/DL (5.7-8.2)
[2023-09-25] MEDS: LR 1,000 ML IV STA (08:31)
[2023-09-25] MEDS: MIDODRINE 5 MG TAB PO SCH (08:32)
[2023-09-25] MEDS: LR 1,000 ML IV SCH (13:26)
[2023-09-25] MEDS ORDERED: PILL CUTTER 1 EACH XX ONE (13:36)
[2023-09-26] VITALS (52 sets, daily range): BP systolic 83–139; BP diastolic 41–70; TEMP 97.1–98.2; O2SAT 89–100
[2023-09-26] MEDS: ALBUTEROL SULFATE 2.5MG/0.5ML INH NEB SOLN NEB PRN (01:46)
[2023-09-26 04:58] LABS: HEMATOCRIT 29.4 % (42.0-52.0); HEMOGLOBIN 8.5 g/dl (13.5-17.5); MEAN CORPUSCULAR HEMOGLOBIN 29.9 pg (27.0-33.0); MEAN CORPUSCULAR HGB CONC 28.9 g/dl (32.0-36.5); MEAN CORPUSCULAR VOLUME 103.5 fl (80.0-96.0); PLATELET COUNT, AUTOMATED 129 10^3/uL (150-450); RED BLOOD COUNT 2.84 10^6/uL (4.30-6.10); WHITE BLOOD COUNT 6.9 10^3/uL (4.0-10.0)
[2023-09-26 05:15] LABS: ALBUMIN 1.8 G/DL (3.2-5.2); BILIRUBIN,TOTAL 0.2 MG/DL (0.3-1.2); CALCIUM LEVEL 7.2 MG/DL (8.3-10.6); CREATININE FOR GFR 2.9 MG/DL (0.70-1.30); GLOMERULAR FILTRATION RATE 22.7 (>42); POTASSIUM SERUM 3.7 MMOL/L (3.5-5.1)
[2023-09-26] MEDS ORDERED: GLUCOSE 4 GM CHEW PO PRN (07:35)
[2023-09-26] MEDS ORDERED: DEXTROSE 50% 50ML SYRINGE IV PRN (07:35)
[2023-09-26] MEDS ORDERED: GLUCAGON INJ 1MG VIAL SC PRN (07:35)
[2023-09-26 11:38] LABS: MAGNESIUM LEVEL 1.6 MG/DL (1.8-2.4)
[2023-09-26] MEDS: INSULIN LISPRO (NovoLOG) PER UNIT SC SCH ×2 (11:51→21:00)
[2023-09-26] MEDS: MAG SULF 1GM/100ML (MAG RUN) 1 GM in IV 1 EA IV SCH (12:52)
[2023-09-26 14:59] LABS: CREATININE FOR GFR 3.25 MG/DL (0.70-1.30); GLOMERULAR FILTRATION RATE 19.9 (>42); POTASSIUM SERUM 3.5 MMOL/L (3.5-5.1)
[2023-09-27] VITALS (18 sets, daily range): BP systolic 83–124; BP diastolic 50–69; TEMP 97.6–98; O2SAT 88–99
[2023-09-27 04:34] LABS: HEMATOCRIT 28.8 % (42.0-52.0); HEMOGLOBIN 8.6 g/dl (13.5-17.5); MEAN CORPUSCULAR HEMOGLOBIN 30.5 pg (27.0-33.0); MEAN CORPUSCULAR HGB CONC 29.9 g/dl (32.0-36.5); MEAN CORPUSCULAR VOLUME 102.1 fl (80.0-96.0); PLATELET COUNT, AUTOMATED 130 10^3/uL (150-450); RED BLOOD COUNT 2.82 10^6/uL (4.30-6.10); WHITE BLOOD COUNT 5.6 10^3/uL (4.0-10.0)
[2023-09-27 05:04] LABS: ALBUMIN 1.9 G/DL (3.2-5.2); ALKALINE PHOSPHATASE 78 U/L (46-116); ALT/SGPT 25 U/L (7.0-40); AST/SGOT 19 U/L (<34); BILIRUBIN,TOTAL < 0.2 MG/DL (0.3-1.2); BLOOD UREA NITROGEN 40 MG/DL (9-23); CARBON DIOXIDE LEVEL 20 MMOL/L (20-31); CHLORIDE LEVEL 107 MMOL/L (98-107); CREATININE FOR GFR 3.64 MG/DL (0.70-1.30); GLOMERULAR FILTRATION RATE 17.5 (>42); GLUCOSE, FASTING 105 MG/DL (74-106); POTASSIUM SERUM 3.8 MMOL/L (3.5-5.1); SODIUM LEVEL 135 MMOL/L (136-145); TOTAL PROTEIN 4.1 G/DL (5.7-8.2)
[2023-09-27 06:36] LABS: MAGNESIUM LEVEL 1.9 MG/DL (1.8-2.4)
[2023-09-27] MEDS: TIOTROPIUM INHALER/CAPSULE (SPIRIVA) INH SCH (10:07)
[2023-09-27] MEDS: metroNIDAZOLE 500 MG in IV 1 EA IV SCH (11:30)
[2023-09-27] MEDS: VANCOMYCIN 125MG CAPSULE PO SCH (11:32)
[2023-09-27] MEDS: LACTOBACILLUS ACIDOPHILUS CAP (BACID) PO SCH (11:32)
[2023-09-27] MEDS ORDERED: VANCOMYCIN 125MG CAPSULE PO SCH (12:00)
[2023-09-27] MEDS: FUROSEMIDE injection 250 MG in D5W 225 ML IV SCH (14:13)
[2023-09-27] MEDS: ACETAMINOPHEN 500 MG TAB PO PRN (15:34)
[2023-09-27 16:30] LABS: GLOMERULAR FILTRATION RATE 15.7 (>42); POTASSIUM SERUM 3.7 MMOL/L (3.5-5.1)
[2023-09-27] MEDS: LEVALBUTEROL 1.25MG 0.5ML CONCENTRATE NEB INH PRN (21:47)
[2023-09-27 22:57] LABS: CREATININE FOR GFR 4.17 MG/DL (0.70-1.30); GLOMERULAR FILTRATION RATE 14.9 (>42); PHOSPHORUS LEVEL 4.8 MG/DL (2.4-5.1); POTASSIUM SERUM 3.6 MMOL/L (3.5-5.1)
[2023-09-28] VITALS (36 sets, daily range): BP systolic 82–125; BP diastolic 40–69; TEMP 96–98.2; O2SAT 86–99
[2023-09-28 05:02] LABS: HEMATOCRIT 30.9 % (42.0-52.0); HEMOGLOBIN 9.2 g/dl (13.5-17.5); MEAN CORPUSCULAR HEMOGLOBIN 30.4 pg (27.0-33.0); MEAN CORPUSCULAR HGB CONC 29.8 g/dl (32.0-36.5); PLATELET COUNT, AUTOMATED 115 10^3/uL (150-450); RED BLOOD COUNT 3.03 10^6/uL (4.30-6.10); WHITE BLOOD COUNT 8.3 10^3/uL (4.0-10.0)
[2023-09-28 05:27] LABS: ALBUMIN 2.1 G/DL (3.2-5.2); ALKALINE PHOSPHATASE 87 U/L (46-116); ALT/SGPT 26 U/L (7.0-40); AST/SGOT 14 U/L (<34); BILIRUBIN,TOTAL 0.2 MG/DL (0.3-1.2); BLOOD UREA NITROGEN 43 MG/DL (9-23); CALCIUM LEVEL 7.1 MG/DL (8.3-10.6); CARBON DIOXIDE LEVEL 21 MMOL/L (20-31); CHLORIDE LEVEL 104 MMOL/L (98-107); CREATININE FOR GFR 4.38 MG/DL (0.70-1.30); GLOMERULAR FILTRATION RATE 14.1 (>42); GLUCOSE, FASTING 133 MG/DL (74-106); POTASSIUM SERUM 3.7 MMOL/L (3.5-5.1); SODIUM LEVEL 133 MMOL/L (136-145); TOTAL PROTEIN 4.4 G/DL (5.7-8.2)
[2023-09-28 07:42] LABS: VENOUS BASE EXCESS -13.5 (-2.0-2.0); VENOUS HCO3 14.5 MMOL/L (23.0-27.0); VENOUS O2 SATURATION 99.3 % (60.0-80.0); VENOUS PARTIAL PRESSURE CO2 42.1 mmHg (38.0-50.0); VENOUS PARTIAL PRESSURE O2 241.4 mmHg (30.0-50.0); VENOUS PH 7.155 UNITS (7.330-7.430); VENOUS STANDARD HCO3 13.9 MMOL/L; VENOUS TOTAL CO2 15.8 MMOL/L (24.0-28.0)
[2023-09-28] MEDS: SODIUM BICARBONATE 8.4% INJ 50ML SYRINGE IV STA (08:19)
[2023-09-28] MEDS: FAMOTIDINE 20 MG TAB PO SCH (09:00)
[2023-09-28] MEDS: HEPARIN 1,000UNITS/ML 10ML VIAL (FOR RADIOLOGY & DIALYSIS ONLY) IV STA (09:20)
[2023-09-28] MEDS ORDERED: SODIUM CHLORIDE 0.9% 1000ML IV PRN (09:45)
[2023-09-28] MEDS ORDERED: HEPARIN 1,000UNITS/ML 10ML VIAL (FOR RADIOLOGY & DIALYSIS ONLY) IV PRN (09:45)
[2023-09-28] MEDS: LIDOCAINE 5% (LIDODERM) PATCH TOP SCH (10:00)
[2023-09-28 10:48] LABS: HEPATITIS B SURFACE ANTIBODY NEGATIVE (POSITIVE)
[2023-09-28 11:00] LABS: HEPATITIS B SURFACE ANTIGEN NEGATIVE (NEGATIVE)
[2023-09-28 11:20] LABS: HEPATITIS B CORE ANTIBODY IGM NEGATIVE (NEGATIVE); HEPATITIS C VIRUS ABY INDEX < 0.02 INDEX (<0.8)
[2023-09-28] MEDS: NOREPINEPHRINE 4MG IN D5 250ML 4 MG in IV 1 EA IV SCH (13:10)
[2023-09-28] MEDS: HEPARIN 1,000UNITS/ML 10ML VIAL (FOR RADIOLOGY & DIALYSIS ONLY) XX SCH (13:13)
[2023-09-28] MEDS: ACETAMINOPHEN *IV* 1,000 MG in IV 1 EA IV PRN (18:33)
[2023-09-29] VITALS (24 sets, daily range): BP systolic 93–149; BP diastolic 53–98; TEMP 97–98; O2SAT 84–100
[2023-09-29 05:47] LABS: HEMATOCRIT 29.1 % (42.0-52.0); HEMOGLOBIN 8.6 g/dl (13.5-17.5); MEAN CORPUSCULAR HEMOGLOBIN 29.9 pg (27.0-33.0); MEAN CORPUSCULAR HGB CONC 29.6 g/dl (32.0-36.5); RED BLOOD COUNT 2.88 10^6/uL (4.30-6.10); WHITE BLOOD COUNT 4.7 10^3/uL (4.0-10.0)
[2023-09-29 05:48] LABS: PLATELET COUNT, AUTOMATED 97 10^3/uL (150-450)
[2023-09-29 06:23] LABS: ALBUMIN 2.1 G/DL (3.2-5.2); BILIRUBIN,TOTAL 0.2 MG/DL (0.3-1.2); CALCIUM LEVEL 7.8 MG/DL (8.3-10.6); CREATININE FOR GFR 2.9 MG/DL (0.70-1.30); GLOMERULAR FILTRATION RATE 22.7 (>42); POTASSIUM SERUM 3.5 MMOL/L (3.5-5.1); TOTAL PROTEIN 4.2 G/DL (5.7-8.2)
[2023-09-29] MEDS: CARVedilol 3.125 MG TAB PO SCH (12:46)
[2023-09-29 13:20] LABS: VENOUS BASE EXCESS -6.7 (-2.0-2.0); VENOUS HCO3 18.5 MMOL/L (23.0-27.0); VENOUS PARTIAL PRESSURE CO2 35.9 mmHg (38.0-50.0); VENOUS PARTIAL PRESSURE O2 234.4 mmHg (30.0-50.0); VENOUS PH 7.331 UNITS (7.330-7.430); VENOUS TOTAL CO2 19.6 MMOL/L (24.0-28.0)
[2023-09-29] MEDS: INSULIN LISPRO (NovoLOG) PER UNIT SC SCH ×2 (21:00)
[2023-09-29] MEDS: FUROSEMIDE 100MG/10ML VIAL IV ONE (22:34)
[2023-09-30] VITALS (9 sets, daily range): BP systolic 104–175; BP diastolic 55–87; TEMP 97.5–98.3; O2SAT 31–97
[2023-09-30 05:56] LABS: HEMATOCRIT 27.8 % (42.0-52.0); HEMOGLOBIN 8.4 g/dl (13.5-17.5); MEAN CORPUSCULAR HEMOGLOBIN 30.2 pg (27.0-33.0); MEAN CORPUSCULAR HGB CONC 30.2 g/dl (32.0-36.5); RED BLOOD COUNT 2.78 10^6/uL (4.30-6.10); WHITE BLOOD COUNT 4.5 10^3/uL (4.0-10.0)
[2023-09-30 05:59] LABS: PLATELET COUNT, AUTOMATED 99 10^3/uL (150-450)
[2023-09-30 06:14] LABS: BILIRUBIN,TOTAL 0.2 MG/DL (0.3-1.2); CALCIUM LEVEL 7.5 MG/DL (8.3-10.6); CREATININE FOR GFR 3.56 MG/DL (0.70-1.30); GLOMERULAR FILTRATION RATE 17.9 (>42); MAGNESIUM LEVEL 1.6 MG/DL (1.8-2.4); POTASSIUM SERUM 3.3 MMOL/L (3.5-5.1); TOTAL PROTEIN 4.1 G/DL (5.7-8.2)
[2023-09-30] MEDS: INSULIN LISPRO (NovoLOG) PER UNIT SC SCH (07:30)
[2023-09-30] MEDS: MAGNESIUM OXIDE 400MG TAB (MAG-OX) PO ONE (09:29)
[2023-09-30] MEDS: CARVedilol 12.5 MG TAB PO SCH ×2 (09:30→20:41)
[2023-09-30] MEDS: POTASSIUM CHLORIDE 10MEQ SR TABLET PO SCH (09:31)
[2023-09-30] MEDS: FAMOTIDINE 20 MG TAB PO SCH (09:38)
[2023-09-30] MEDS ORDERED: PILL CUTTER 1 EACH XX PRN (09:40)
[2023-09-30] MEDS: FUROSEMIDE 100MG/10ML VIAL IV ONE (11:35)
[2023-09-30] MEDS: ACETAMINOPHEN TAB 650MG DOSE (2X325MG) PO PRN (11:35)
[2023-09-30] MEDS: CARVedilol 12.5 MG TAB PO ONE (11:36)
[2023-09-30 13:11] LABS: VENOUS BASE EXCESS -3.5 (-2.0-2.0); VENOUS HCO3 23.5 MMOL/L (23.0-27.0); VENOUS O2 SATURATION 98.3 % (60.0-80.0); VENOUS PARTIAL PRESSURE CO2 52.8 mmHg (38.0-50.0); VENOUS PH 7.267 UNITS (7.330-7.430); VENOUS STANDARD HCO3 21.5 MMOL/L; VENOUS TOTAL CO2 25.2 MMOL/L (24.0-28.0)
[2023-10-01] VITALS (15 sets, daily range): BP systolic 98–170; BP diastolic 66–82; TEMP 97.9–98.9; O2SAT 86–96
[2023-10-01 05:46] LABS: HEMATOCRIT 27.8 % (42.0-52.0); HEMOGLOBIN 8.4 g/dl (13.5-17.5); MEAN CORPUSCULAR HEMOGLOBIN 30.1 pg (27.0-33.0); MEAN CORPUSCULAR HGB CONC 30.2 g/dl (32.0-36.5); MEAN CORPUSCULAR VOLUME 99.6 fl (80.0-96.0); RED BLOOD COUNT 2.79 10^6/uL (4.30-6.10); WHITE BLOOD COUNT 3.4 10^3/uL (4.0-10.0)
[2023-10-01 05:56] LABS: PLATELET COUNT, AUTOMATED 97 10^3/uL (150-450)
[2023-10-01 06:12] LABS: ALBUMIN 2.1 G/DL (3.2-5.2); BILIRUBIN,TOTAL 0.2 MG/DL (0.3-1.2); CALCIUM LEVEL 7.7 MG/DL (8.3-10.6); CREATININE FOR GFR 4.01 MG/DL (0.70-1.30); GLOMERULAR FILTRATION RATE 15.6 (>42); MAGNESIUM LEVEL 1.6 MG/DL (1.8-2.4); POTASSIUM SERUM 3.4 MMOL/L (3.5-5.1); TOTAL PROTEIN 4.1 G/DL (5.7-8.2)
[2023-10-01] MEDS ORDERED: HEPARIN 1,000UNITS/ML 10ML VIAL (FOR RADIOLOGY & DIALYSIS ONLY) IV PRN (06:45)
[2023-10-01] MEDS ORDERED: SODIUM CHLORIDE 0.9% 1000ML IV PRN (06:45)
[2023-10-01] MEDS: MAGNESIUM OXIDE 400MG TAB (MAG-OX) PO ONE (06:48)
[2023-10-01 08:30] LABS: EOS % 0.3 % (0.0-3.0); LYMPH # 0.1 10^3/uL (1.5-5.0); MONO # 0.3 10^3/uL (0.0-0.8); MONO % 9.8 % (2.0-8.0); NEUTROPHILS # 2.7 10^3/uL (1.5-8.5); NEUTROPHILS % 83.5 % (36.0-66.0)
[2023-10-01] MEDS: HEPARIN 1,000UNITS/ML 10ML VIAL (FOR RADIOLOGY & DIALYSIS ONLY) XX SCH (12:18)
[2023-10-02] VITALS (9 sets, daily range): BP systolic 141–168; BP diastolic 66–77; TEMP 97–99; O2SAT 89–99
[2023-10-02 04:29] LABS: EOS % 0.3 % (0.0-3.0); HEMATOCRIT 26.4 % (42.0-52.0); LYMPH # 0.1 10^3/uL (1.5-5.0); LYMPH % 3.7 % (24.0-44.0); MEAN CORPUSCULAR HEMOGLOBIN 30.4 pg (27.0-33.0); MEAN CORPUSCULAR HGB CONC 30.3 g/dl (32.0-36.5); MEAN CORPUSCULAR VOLUME 100.4 fl (80.0-96.0); MONO # 0.3 10^3/uL (0.0-0.8); NEUTROPHILS % 84.7 % (36.0-66.0); RED BLOOD COUNT 2.63 10^6/uL (4.30-6.10); WHITE BLOOD COUNT 3.5 10^3/uL (4.0-10.0)
[2023-10-02 04:34] LABS: PLATELET COUNT, AUTOMATED 93 10^3/uL (150-450)
[2023-10-02 05:07] LABS: ALBUMIN 1.9 G/DL (3.2-5.2); BILIRUBIN,TOTAL 0.2 MG/DL (0.3-1.2); CALCIUM LEVEL 7.3 MG/DL (8.3-10.6); CREATININE FOR GFR 2.73 MG/DL (0.70-1.30); GLOMERULAR FILTRATION RATE 24.3 (>42); MAGNESIUM LEVEL 1.8 MG/DL (1.8-2.4); PHOSPHORUS LEVEL 2.2 MG/DL (2.4-5.1); POTASSIUM SERUM 3.8 MMOL/L (3.5-5.1); TOTAL PROTEIN 3.8 G/DL (5.7-8.2)
[2023-10-02] MEDS: FUROSEMIDE injection 250 MG in D5W 225 ML IV SCH (11:45)
[2023-10-02] MEDS: VANCOMYCIN ORAL SOL 250MG/5ML ORAL SYRINGE PO SCH (17:20)
[2023-10-03 03:30] VITALS: BP 160/86; TEMP 96.9; O2SAT 95
[2023-10-03 06:45] LABS: EOS % 0.5 % (0.0-3.0); HEMATOCRIT 26.9 % (42.0-52.0); LYMPH # 0.1 10^3/uL (1.5-5.0); LYMPH % 2.3 % (24.0-44.0); MEAN CORPUSCULAR HEMOGLOBIN 30.1 pg (27.0-33.0); MEAN CORPUSCULAR HGB CONC 29.7 g/dl (32.0-36.5); MEAN CORPUSCULAR VOLUME 101.1 fl (80.0-96.0); MONO # 0.4 10^3/uL (0.0-0.8); MONO % 9.5 % (2.0-8.0); NEUTROPHILS # 3.3 10^3/uL (1.5-8.5); NEUTROPHILS % 84.6 % (36.0-66.0); PLATELET COUNT, AUTOMATED 107 10^3/uL (150-450); RED BLOOD COUNT 2.66 10^6/uL (4.30-6.10); WHITE BLOOD COUNT 3.9 10^3/uL (4.0-10.0)
[2023-10-03 07:07] LABS: BILIRUBIN,TOTAL 0.2 MG/DL (0.3-1.2); CALCIUM LEVEL 7.6 MG/DL (8.3-10.6); CREATININE FOR GFR 3.22 MG/DL (0.70-1.30); GLOMERULAR FILTRATION RATE 20.1 (>42); MAGNESIUM LEVEL 1.6 MG/DL (1.8-2.4); PHOSPHORUS LEVEL 3.1 MG/DL (2.4-5.1); POTASSIUM SERUM 4.2 MMOL/L (3.5-5.1); TOTAL PROTEIN 3.9 G/DL (5.7-8.2)
[2023-10-03 08:04] VITALS: BP 169/72; TEMP 97; O2SAT 96
[2023-10-03] MEDS: MAG SULF 1GM/100ML (MAG RUN) 1 GM in IV 1 EA IV SCH (08:06)
[2023-10-03 12:00] VITALS: BP 157/74; TEMP 97.3; O2SAT 94
[2023-10-03 12:41] VITALS: O2SAT 95
[2023-10-03 16:00] VITALS: BP 147/77; TEMP 98; O2SAT 91
[2023-10-03] MEDS: NICOTINE 14 MG/24 HR TRANSDERMAL TD SCH (17:58)
[2023-10-03 23:48] VITALS: BP 132/65; TEMP 97.4; O2SAT 90
[2023-10-04 04:13] VITALS: BP 132/63; TEMP 97.9; O2SAT 89
[2023-10-04 05:38] LABS: EOS % 0.9 % (0.0-3.0); HEMATOCRIT 27.7 % (42.0-52.0); HEMOGLOBIN 8.3 g/dl (13.5-17.5); LYMPH # 0.1 10^3/uL (1.5-5.0); LYMPH % 2.8 % (24.0-44.0); MEAN CORPUSCULAR HEMOGLOBIN 30.4 pg (27.0-33.0); MEAN CORPUSCULAR VOLUME 101.5 fl (80.0-96.0); MONO # 0.4 10^3/uL (0.0-0.8); MONO % 8.5 % (2.0-8.0); NEUTROPHILS # 3.7 10^3/uL (1.5-8.5); NEUTROPHILS % 85.3 % (36.0-66.0); PLATELET COUNT, AUTOMATED 100 10^3/uL (150-450); RED BLOOD COUNT 2.73 10^6/uL (4.30-6.10); WHITE BLOOD COUNT 4.3 10^3/uL (4.0-10.0)
[2023-10-04 06:11] LABS: ALBUMIN 2.1 G/DL (3.2-5.2); BILIRUBIN,TOTAL 0.2 MG/DL (0.3-1.2); CALCIUM LEVEL 7.7 MG/DL (8.3-10.6); CREATININE FOR GFR 3.7 MG/DL (0.70-1.30); GLOMERULAR FILTRATION RATE 17.1 (>42); MAGNESIUM LEVEL 1.9 MG/DL (1.8-2.4); PHOSPHORUS LEVEL 4.8 MG/DL (2.4-5.1); POTASSIUM SERUM 4.3 MMOL/L (3.5-5.1); TOTAL PROTEIN 4.1 G/DL (5.7-8.2)
[2023-10-04 08:38] VITALS: BP 148/68; TEMP 98.3; O2SAT 97
[2023-10-04] MEDS: amLODIPine 5 MG TAB PO SCH (10:19)
[2023-10-04 12:00] VITALS: BP 129/68; TEMP 98; O2SAT 96
[2023-10-04 16:00] VITALS: BP 147/68; TEMP 97.4; O2SAT 96
[2023-10-04 19:31] VITALS: BP 118/58; TEMP 97; O2SAT 94
[2023-10-04 23:15] VITALS: BP 147/67; TEMP 96.8; O2SAT 92
[2023-10-05] VITALS (8 sets, daily range): BP systolic 88–160; BP diastolic 40–68; TEMP 96.7–98.3; O2SAT 90–100
[2023-10-05] MEDS: PERCOCET 5MG/325MG TAB PO PRN (04:24)
[2023-10-05] MEDS ORDERED: HEPARIN 1,000UNITS/ML 10ML VIAL (FOR RADIOLOGY & DIALYSIS ONLY) IV PRN (06:00)
[2023-10-05] MEDS ORDERED: LIDOCAINE 1% SDV 5ML VIAL SC PRN (06:00)
[2023-10-05] MEDS ORDERED: SODIUM CHLORIDE 0.9% 1000ML IV PRN (06:00)
[2023-10-05 06:30] LABS: BASO % 0.2 % (0.0-1.0); EOS % 0.4 % (0.0-3.0); HEMATOCRIT 29.2 % (42.0-52.0); HEMOGLOBIN 8.6 g/dl (13.5-17.5); LYMPH # 0.1 10^3/uL (1.5-5.0); LYMPH % 2.1 % (24.0-44.0); MEAN CORPUSCULAR HEMOGLOBIN 30.1 pg (27.0-33.0); MEAN CORPUSCULAR HGB CONC 29.5 g/dl (32.0-36.5); MEAN CORPUSCULAR VOLUME 102.1 fl (80.0-96.0); MONO # 0.4 10^3/uL (0.0-0.8); MONO % 7.9 % (2.0-8.0); NEUTROPHILS # 4.2 10^3/uL (1.5-8.5); NEUTROPHILS % 88.3 % (36.0-66.0); PLATELET COUNT, AUTOMATED 104 10^3/uL (150-450); RED BLOOD COUNT 2.86 10^6/uL (4.30-6.10); WHITE BLOOD COUNT 4.7 10^3/uL (4.0-10.0)
[2023-10-05 07:06] LABS: ALBUMIN 2.2 G/DL (3.2-5.2); BILIRUBIN,TOTAL 0.3 MG/DL (0.3-1.2); CALCIUM LEVEL 7.5 MG/DL (8.3-10.6); CREATININE FOR GFR 3.82 MG/DL (0.70-1.30); GLOMERULAR FILTRATION RATE 16.5 (>42); MAGNESIUM LEVEL 1.7 MG/DL (1.8-2.4); PHOSPHORUS LEVEL 6.3 MG/DL (2.4-5.1); POTASSIUM SERUM 4.3 MMOL/L (3.5-5.1); TOTAL PROTEIN 4.3 G/DL (5.7-8.2)
[2023-10-05] MEDS: HEPARIN 1,000UNITS/ML 10ML VIAL (FOR RADIOLOGY & DIALYSIS ONLY) XX SCH (12:24)
[2023-10-06 03:57] VITALS: BP 135/63; TEMP 98.8; O2SAT 99
[2023-10-06 06:59] LABS: EOS % 0.6 % (0.0-3.0); HEMATOCRIT 28.4 % (42.0-52.0); HEMOGLOBIN 8.5 g/dl (13.5-17.5); LYMPH # 0.1 10^3/uL (1.5-5.0); LYMPH % 2.1 % (24.0-44.0); MEAN CORPUSCULAR HGB CONC 29.9 g/dl (32.0-36.5); MEAN CORPUSCULAR VOLUME 103.6 fl (80.0-96.0); MONO # 0.5 10^3/uL (0.0-0.8); MONO % 9.8 % (2.0-8.0); NEUTROPHILS # 4.5 10^3/uL (1.5-8.5); NEUTROPHILS % 86.7 % (36.0-66.0); RED BLOOD COUNT 2.74 10^6/uL (4.30-6.10); WHITE BLOOD COUNT 5.2 10^3/uL (4.0-10.0)
[2023-10-06 07:28] LABS: ALBUMIN 2.3 G/DL (3.2-5.2); BILIRUBIN,TOTAL 0.3 MG/DL (0.3-1.2); CALCIUM LEVEL 7.8 MG/DL (8.3-10.6); CREATININE FOR GFR 2.18 MG/DL (0.70-1.30); GLOMERULAR FILTRATION RATE 31.6 (>42); MAGNESIUM LEVEL 1.6 MG/DL (1.8-2.4); PHOSPHORUS LEVEL 3.4 MG/DL (2.4-5.1); POTASSIUM SERUM 3.4 MMOL/L (3.5-5.1); TOTAL PROTEIN 4.3 G/DL (5.7-8.2)
[2023-10-06 07:40] VITALS: BP 100/56
[2023-10-06 07:45] LABS: PLATELET COUNT, AUTOMATED 97 10^3/uL (150-450)
[2023-10-06 07:46] VITALS: TEMP 98.6; O2SAT 97
[2023-10-06] MEDS: PERCOCET 5MG/325MG TAB PO PRN (08:41)
[2023-10-06] MEDS: POTASSIUM CHLORIDE 10MEQ SR TABLET PO ONE ×2 (12:18→16:54)
[2023-10-06 15:38] VITALS: BP 129/58; TEMP 98.2; O2SAT 98
[2023-10-06] MEDS: HEPARIN SOD (PORCINE) 5000UNITS/ML 1ML VIAL/SYRINGE SQ SCH (16:04)
[2023-10-06] MEDS: IPRATROPIUM 0.5MG/ALBUTEROL 2.5MG INH SOL UD 3ML (DUONEB) NEB SCH (20:00)
[2023-10-06 20:50] VITALS: BP 125/58; TEMP 97; O2SAT 97
[2023-10-06 23:46] VITALS: BP 110/44; TEMP 98.2; O2SAT 100
[2023-10-07 04:11] VITALS: BP_SYST 146; BP_SYST 152; BP_DIAS 68; BP_DIAS 69; TEMP 97.8; O2SAT 100
[2023-10-07 06:12] LABS: BASO % 0.2 % (0.0-1.0); EOS % 0.7 % (0.0-3.0); LYMPH # 0.1 10^3/uL (1.5-5.0); LYMPH % 2.9 % (24.0-44.0); MEAN CORPUSCULAR HEMOGLOBIN 30.9 pg (27.0-33.0); MEAN CORPUSCULAR HGB CONC 29.6 g/dl (32.0-36.5); MEAN CORPUSCULAR VOLUME 104.2 fl (80.0-96.0); MONO # 0.5 10^3/uL (0.0-0.8); MONO % 11.6 % (2.0-8.0); NEUTROPHILS # 3.5 10^3/uL (1.5-8.5); NEUTROPHILS % 84.1 % (36.0-66.0); RED BLOOD COUNT 2.59 10^6/uL (4.30-6.10); WHITE BLOOD COUNT 4.1 10^3/uL (4.0-10.0)
[2023-10-07 06:27] LABS: PLATELET COUNT, AUTOMATED 88 10^3/uL (150-450)
[2023-10-07 07:22] LABS: ALBUMIN 2.3 G/DL (3.2-5.2); BILIRUBIN,TOTAL 0.3 MG/DL (0.3-1.2); CALCIUM LEVEL 7.6 MG/DL (8.3-10.6); CREATININE FOR GFR 2.56 MG/DL (0.70-1.30); GLOMERULAR FILTRATION RATE 26.2 (>42); MAGNESIUM LEVEL 1.3 MG/DL (1.8-2.4); PHOSPHORUS LEVEL 4.3 MG/DL (2.4-5.1); POTASSIUM SERUM 3.9 MMOL/L (3.5-5.1); TOTAL PROTEIN 4.1 G/DL (5.7-8.2)
[2023-10-07 08:00] VITALS: BP 147/61; TEMP 97.3; O2SAT 97
[2023-10-07] MEDS ORDERED: SODIUM CHLORIDE 0.9% INJ 10 ML SYR IV PRN (10:15)
[2023-10-07] MEDS: SODIUM CHLORIDE 0.9% INJ 10 ML SYR IV SCH (10:59)
[2023-10-07 11:42] VITALS: BP 147/74; TEMP 98.6; O2SAT 94
[2023-10-07 15:34] VITALS: BP 120/55; TEMP 97.4; O2SAT 99
[2023-10-07 20:15] VITALS: BP 132/44; TEMP 96.8; O2SAT 97
[2023-10-08] VITALS (8 sets, daily range): BP systolic 80–136; BP diastolic 38–68; TEMP 97.1–98; O2SAT 94–96
[2023-10-08 05:16] LABS: BASO % 0.3 % (0.0-1.0); EOS % 0.6 % (0.0-3.0); HEMATOCRIT 23.4 % (42.0-52.0); HEMOGLOBIN 7.1 g/dl (13.5-17.5); LYMPH # 0.1 10^3/uL (1.5-5.0); LYMPH % 3.8 % (24.0-44.0); MEAN CORPUSCULAR HGB CONC 30.3 g/dl (32.0-36.5); MEAN CORPUSCULAR VOLUME 102.2 fl (80.0-96.0); MONO # 0.4 10^3/uL (0.0-0.8); MONO % 12.5 % (2.0-8.0); NEUTROPHILS # 2.8 10^3/uL (1.5-8.5); NEUTROPHILS % 82.5 % (36.0-66.0); RED BLOOD COUNT 2.29 10^6/uL (4.30-6.10); WHITE BLOOD COUNT 3.4 10^3/uL (4.0-10.0)
[2023-10-08 05:17] LABS: PLATELET COUNT, AUTOMATED 84 10^3/uL (150-450)
[2023-10-08 05:42] LABS: BILIRUBIN,TOTAL 0.2 MG/DL (0.3-1.2); CALCIUM LEVEL 7.4 MG/DL (8.3-10.6); CREATININE FOR GFR 2.6 MG/DL (0.70-1.30); GLOMERULAR FILTRATION RATE 25.7 (>42); MAGNESIUM LEVEL 1.2 MG/DL (1.8-2.4); PHOSPHORUS LEVEL 4.7 MG/DL (2.4-5.1); POTASSIUM SERUM 3.7 MMOL/L (3.5-5.1)
[2023-10-08 07:44] LABS: BASO % 0.2 % (0.0-1.0); EOS % 0.2 % (0.0-3.0); HEMATOCRIT 26.1 % (42.0-52.0); HEMOGLOBIN 7.8 g/dl (13.5-17.5); LYMPH # 0.1 10^3/uL (1.5-5.0); LYMPH % 2.6 % (24.0-44.0); MEAN CORPUSCULAR HEMOGLOBIN 30.5 pg (27.0-33.0); MEAN CORPUSCULAR HGB CONC 29.9 g/dl (32.0-36.5); MONO # 0.5 10^3/uL (0.0-0.8); MONO % 11.5 % (2.0-8.0); NEUTROPHILS % 84.9 % (36.0-66.0); RED BLOOD COUNT 2.56 10^6/uL (4.30-6.10); WHITE BLOOD COUNT 4.7 10^3/uL (4.0-10.0)
[2023-10-08 07:53] LABS: PLATELET COUNT, AUTOMATED 93 10^3/uL (150-450)
[2023-10-08] MEDS: FUROSEMIDE 40 MG TAB PO SCH (09:16)
[2023-10-08] MEDS: MAGNESIUM OXIDE 400MG TAB (MAG-OX) PO SCH (09:16)
[2023-10-08] MEDS: MAG SULF 1GM/100ML (MAG RUN) 1 GM in IV 1 EA IV SCH (09:17)
[2023-10-08 16:09] LABS: BASO % 0.2 % (0.0-1.0); EOS % 0.7 % (0.0-3.0); HEMATOCRIT 25.4 % (42.0-52.0); HEMOGLOBIN 7.4 g/dl (13.5-17.5); LYMPH # 0.1 10^3/uL (1.5-5.0); MEAN CORPUSCULAR HEMOGLOBIN 30.5 pg (27.0-33.0); MEAN CORPUSCULAR HGB CONC 29.1 g/dl (32.0-36.5); MEAN CORPUSCULAR VOLUME 104.5 fl (80.0-96.0); MONO # 0.5 10^3/uL (0.0-0.8); MONO % 11.6 % (2.0-8.0); NEUTROPHILS # 3.6 10^3/uL (1.5-8.5); RED BLOOD COUNT 2.43 10^6/uL (4.30-6.10); WHITE BLOOD COUNT 4.3 10^3/uL (4.0-10.0)
[2023-10-08 16:19] LABS: PLATELET COUNT, AUTOMATED 85 10^3/uL (150-450)
[2023-10-08] MEDS: CARVedilol 12.5 MG TAB PO SCH (21:19)
[2023-10-09] VITALS (8 sets, daily range): BP systolic 96–128; BP diastolic 46–62; TEMP 96.4–97.8; O2SAT 94–100
[2023-10-09 05:56] LABS: HEMATOCRIT 24.4 % (42.0-52.0); HEMOGLOBIN 7.2 g/dl (13.5-17.5); MEAN CORPUSCULAR HEMOGLOBIN 30.5 pg (27.0-33.0); MEAN CORPUSCULAR HGB CONC 29.5 g/dl (32.0-36.5); MEAN CORPUSCULAR VOLUME 103.4 fl (80.0-96.0); RED BLOOD COUNT 2.36 10^6/uL (4.30-6.10); WHITE BLOOD COUNT 3.6 10^3/uL (4.0-10.0)
[2023-10-09 05:58] LABS: PLATELET COUNT, AUTOMATED 76 10^3/uL (150-450)
[2023-10-09 07:19] LABS: ALBUMIN 2.2 G/DL (3.2-5.2); BILIRUBIN,TOTAL 0.2 MG/DL (0.3-1.2); CALCIUM LEVEL 7.5 MG/DL (8.3-10.6); MAGNESIUM LEVEL 1.8 MG/DL (1.8-2.4); POTASSIUM SERUM 3.6 MMOL/L (3.5-5.1); TOTAL PROTEIN 3.9 G/DL (5.7-8.2)
[2023-10-09] MEDS ORDERED: BACITRACIN OINTMENT 30GM TUBE TOP ONE (09:00)
[2023-10-09] MEDS: MAG SULF 1GM/100ML (MAG RUN) 1 GM in IV 1 EA IV ONE (09:33)
[2023-10-09 10:08] LABS: BASO % 0.2 % (0.0-1.0); EOS % 0.5 % (0.0-3.0); HEMATOCRIT 23.5 % (42.0-52.0); LYMPH # 0.1 10^3/uL (1.5-5.0); LYMPH % 1.7 % (24.0-44.0); MEAN CORPUSCULAR HEMOGLOBIN 30.8 pg (27.0-33.0); MEAN CORPUSCULAR HGB CONC 29.8 g/dl (32.0-36.5); MEAN CORPUSCULAR VOLUME 103.5 fl (80.0-96.0); MONO # 0.4 10^3/uL (0.0-0.8); MONO % 10.6 % (2.0-8.0); NEUTROPHILS # 3.5 10^3/uL (1.5-8.5); NEUTROPHILS % 86.8 % (36.0-66.0); RED BLOOD COUNT 2.27 10^6/uL (4.30-6.10); WHITE BLOOD COUNT 4.1 10^3/uL (4.0-10.0)
[2023-10-09 10:22] LABS: PLATELET COUNT, AUTOMATED 82 10^3/uL (150-450)
[2023-10-09] MEDS ORDERED: RISATAB3 PO (10:53)
[2023-10-09] MEDS ORDERED: FURO40TA2 PO (10:53)
[2023-10-09] MEDS ORDERED: CARV12.5 PO (10:53)
[2023-10-09] MEDS ORDERED: MAGN400T2 PO (10:53)
[2023-10-09] MEDS ORDERED: PERCOCET PO (10:53)
[2023-10-09] MEDS: NEOSPORIN OINT 0.9 GM PKT TOP ONE (12:23)
[2023-10-09] MEDS ORDERED: INSUHUMDS SC (12:52)
[2023-10-09 12:56] LABS: CREATININE FOR GFR 2.56 MG/DL (0.70-1.30); GLOMERULAR FILTRATION RATE 26.2 (>42)
== END 2023-10-09 13:55 | DRG 871 ==
LOC: M ED 05:24 → M ED INP 11:01 → M ICU 13:05 → M PCU 10-02 18:14
PROVIDERS: ADMIT Internal Medicine Pulmonary Disease; ATTEND Internal Medicine
PROC: 05HM03Z Insertion of Infusion Device into Right Internal Jugular Vein, Open Approach (ICD-10-PCS; principal; 2023-09-28)
PROC: 5A1D70Z Performance of Urinary Filtration, Intermittent, Less than 6 Hours Per Day (ICD-10-PCS; 2023-09-28)
PROC: 30233N1 Transfusion of Nonautologous Red Blood Cells into Peripheral Vein, Percutaneous Approach (ICD-10-PCS; 2023-10-09)
DX: A41.9 Sepsis, unspecified organism (principal); R65.21 Severe sepsis with septic shock; D61.810 Antineoplastic chemotherapy induced pancytopenia; I50.33 Acute on chronic diastolic (congestive) heart failure; N18.4 Chronic kidney disease, stage 4 (severe); A04.72 Enterocolitis due to Clostridium difficile, not specified as recurrent; C90.00 Multiple myeloma not having achieved remission; D84.821 Immunodeficiency due to drugs; I47.10 Supraventricular tachycardia, unspecified; N17.9 Acute kidney failure, unspecified; E87.1 Hypo-osmolality and hyponatremia; E87.20 Acidosis, unspecified; I69.354 Hemiplegia and hemiparesis following cerebral infarction affecting left non-dominant side; I13.0 Hypertensive heart and chronic kidney disease with heart failure and stage 1 through stage 4 chronic kidney disease, or unspecified chronic kidney disease; J96.11 Chronic respiratory failure with hypoxia; E11.22 Type 2 diabetes mellitus with diabetic chronic kidney disease; J44.9 Chronic obstructive pulmonary disease, unspecified; E11.51 Type 2 diabetes mellitus with diabetic peripheral angiopathy without gangrene; I25.10 Atherosclerotic heart disease of native coronary artery without angina pectoris; Z79.899 Other long term (current) drug therapy; K21.9 Gastro-esophageal reflux disease without esophagitis; R13.10 Dysphagia, unspecified; G47.33 Obstructive sleep apnea (adult) (pediatric); N40.0 Benign prostatic hyperplasia without lower urinary tract symptoms; E87.6 Hypokalemia; F32.A Depression, unspecified; C61 Malignant neoplasm of prostate; Z99.3 Dependence on wheelchair; Z92.3 Personal history of irradiation; Z79.4 Long term (current) use of insulin; Z79.82 Long term (current) use of aspirin; Z88.0 Allergy status to penicillin; Z88.8 Allergy status to other drugs, medicaments and biological substances; Z99.81 Dependence on supplemental oxygen; Z77.098 Contact with and (suspected) exposure to other hazardous, chiefly nonmedicinal, chemicals; Z87.891 Personal history of nicotine dependence; Z91.119 Patient's noncompliance with dietary regimen due to unspecified reason; E86.0 Dehydration; K40.20 Bilateral inguinal hernia, without obstruction or gangrene, not specified as recurrent; Z92.21 Personal history of antineoplastic chemotherapy

== ENCOUNTER 2023-10-13 16:01 | Outpatient (CLI) | payer OTHER, MEDICARE ==
[~2023-10-13] VITALS: Ht 170.2 cm; Wt 64.0 kg
[~2023-10-13 16:01] MED LIST changes: +AMLO2.5T3 PO; +FURO40TA2 PO; +INSUHUMDS SC; +LIDO1PAD TOP; +LUPR45IN IM; +MAGN400T2 PO; +PERCOCET PO; +POTA-151 PO; +RETA1000 IM; +RISATAB3 PO
[2023-10-13 16:17] VITALS: BP 185/80; O2SAT 92
[2023-10-13] MEDS: BEZLOTOXUMAB 700 MG in NS 100 ML IV ONE (16:48)
[2023-10-13 17:56] VITALS: BP 138/68; O2SAT 98
== END 2023-10-13 18:00 ==
LOC: M INFU 16:01
PROVIDERS: ATTEND Internal Medicine
DX: A04.72 Enterocolitis due to Clostridium difficile, not specified as recurrent (principal); Z88.0 Allergy status to penicillin; Z88.8 Allergy status to other drugs, medicaments and biological substances
CPT/HCPCS: 96365; J0565

== ENCOUNTER → 2023-10-16 | Outpatient (REF) | payer OTHER | LOC: SKLAB2 13:35 | PROVIDERS: ATTEND Internal Medicine | DX: N18.9 Chronic kidney disease, unspecified (principal); Z53.8 Procedure and treatment not carried out for other reasons ==

== ENCOUNTER → 2023-10-19 | Outpatient (REF) | payer SELFPAY ==
[~2023-10-19] MED LIST changes: +BISA10SU59 PR; +KAZA1000 PO; +TAMS1CAP17 PO; +ZYRTTAB8 PO
[2023-10-19 16:16] LABS: CALCIUM LEVEL 8.2 MG/DL (8.3-10.6); CREATININE FOR GFR 1.6 MG/DL (0.70-1.30); GLOMERULAR FILTRATION RATE 45.1 (>42); POTASSIUM SERUM 3.1 MMOL/L (3.5-5.1)
== END ==
LOC: SKLAB2 14:34
PROVIDERS: ATTEND Internal Medicine
DX: I50.9 Heart failure, unspecified (principal); R91.8 Other nonspecific abnormal finding of lung field

== ENCOUNTER → 2023-10-23 | Outpatient (REF) | payer SELFPAY | LOC: SKLAB2 16:02 | PROVIDERS: ATTEND Internal Medicine | DX: S22.42XA Multiple fractures of ribs, left side, initial encounter for closed fracture (principal); R31.9 Hematuria, unspecified ==

== ENCOUNTER → 2023-10-24 | Outpatient (REF) | payer OTHER ==
[2023-10-24 08:11] LABS: BASO % 0.2 % (0.0-1.0); EOS # 0.1 10^3/uL (0.0-0.5); EOS % 1.4 % (0.0-3.0); HEMATOCRIT 26.3 % (42.0-52.0); HEMOGLOBIN 7.9 g/dl (13.5-17.5); LYMPH # 0.1 10^3/uL (1.5-5.0); LYMPH % 3.1 % (24.0-44.0); MEAN CORPUSCULAR HEMOGLOBIN 31.1 pg (27.0-33.0); MEAN CORPUSCULAR VOLUME 103.5 fl (80.0-96.0); MONO # 0.5 10^3/uL (0.0-0.8); MONO % 11.5 % (2.0-8.0); NEUTROPHILS # 3.5 10^3/uL (1.5-8.5); NEUTROPHILS % 83.3 % (36.0-66.0); PLATELET COUNT, AUTOMATED 127 10^3/uL (150-450); RED BLOOD COUNT 2.54 10^6/uL (4.30-6.10); WHITE BLOOD COUNT 4.2 10^3/uL (4.0-10.0)
[2023-10-24 08:36] LABS: CALCIUM LEVEL 8.5 MG/DL (8.3-10.6); CREATININE FOR GFR 1.42 MG/DL (0.70-1.30); GLOMERULAR FILTRATION RATE 51.7 (>42)
== END ==
LOC: SKLAB2 02:43
PROVIDERS: ATTEND Internal Medicine
DX: S22.42XA Multiple fractures of ribs, left side, initial encounter for closed fracture (principal)

== ENCOUNTER → 2023-10-26 | Outpatient (REF) | payer OTHER ==
[2023-10-26 09:24] LABS: HEMATOCRIT 28.7 % (42.0-52.0); HEMOGLOBIN 8.3 g/dl (13.5-17.5); MEAN CORPUSCULAR HEMOGLOBIN 30.2 pg (27.0-33.0); MEAN CORPUSCULAR HGB CONC 28.9 g/dl (32.0-36.5); MEAN CORPUSCULAR VOLUME 104.4 fl (80.0-96.0); PLATELET COUNT, AUTOMATED 145 10^3/uL (150-450); RED BLOOD COUNT 2.75 10^6/uL (4.30-6.10); WHITE BLOOD COUNT 5.7 10^3/uL (4.0-10.0)
== END ==
LOC: SKLAB6 06:55
PROVIDERS: ATTEND Internal Medicine
DX: S22.42XA Multiple fractures of ribs, left side, initial encounter for closed fracture (principal)

== ENCOUNTER → 2023-11-01 | Outpatient (REF) | payer MEDICARE, OTHER ==
[2023-11-01 15:17] LABS: BASO % 0.3 % (0.0-1.0); EOS # 0.1 10^3/uL (0.0-0.5); EOS % 2.1 % (0.0-3.0); HEMATOCRIT 26.9 % (42.0-52.0); HEMOGLOBIN 8.1 g/dl (13.5-17.5); LYMPH # 0.1 10^3/uL (1.5-5.0); LYMPH % 4.2 % (24.0-44.0); MEAN CORPUSCULAR HEMOGLOBIN 30.7 pg (27.0-33.0); MEAN CORPUSCULAR HGB CONC 30.1 g/dl (32.0-36.5); MEAN CORPUSCULAR VOLUME 101.9 fl (80.0-96.0); MONO # 0.5 10^3/uL (0.0-0.8); NEUTROPHILS # 2.6 10^3/uL (1.5-8.5); NEUTROPHILS % 77.1 % (36.0-66.0); PLATELET COUNT, AUTOMATED 134 10^3/uL (150-450); RED BLOOD COUNT 2.64 10^6/uL (4.30-6.10); WHITE BLOOD COUNT 3.4 10^3/uL (4.0-10.0)
[2023-11-01 15:42] LABS: ALBUMIN 3.1 G/DL (3.2-5.2); BILIRUBIN,TOTAL 0.3 MG/DL (0.3-1.2); CALCIUM LEVEL 8.8 MG/DL (8.3-10.6); CREATININE FOR GFR 1.88 MG/DL (0.70-1.30); GLOMERULAR FILTRATION RATE 37.4 (>42); POTASSIUM SERUM 4.3 MMOL/L (3.5-5.1); TOTAL PROTEIN 5.7 G/DL (5.7-8.2)
== END ==
LOC: SKLAB2 14:31
PROVIDERS: ATTEND Nurse Practitioner Family
DX: R53.83 Other fatigue (principal); N18.9 Chronic kidney disease, unspecified

== ENCOUNTER → 2023-11-02 | Outpatient (REF) | payer OTHER ==
[~2023-11-02] MED LIST changes: +CURC500C2 PO; +LASI20TA3 PO; +MAGN400T35 PO; -ROSU40TA63 PO; +ROSU40TA81 PO; +SITA50TAB PO
[2023-11-02 16:07] LABS: APPEARANCE, URINE CLEAR (CLEAR); BACTERIA, URINE AUTO NEGATIVE (NEGATIVE); BILIRUBIN, URINE AUTO NEGATIVE (NEGATIVE); BLOOD, URINE BLOOD NEGATIVE (NEGATIVE); COLOR, URINE YELLOW (YELLOW); GLUCOSE, URINE (UA) AUTO NEGATIVE (NEGATIVE); KETONE, URINE AUTO NEGATIVE (NEGATIVE); LEUKOCYTE ESTERASE, URINE AUTO NEGATIVE (NEGATIVE); NITRITE, URINE AUTO NEGATIVE (NEGATIVE); PROTEIN, URINE AUTO 1+ mg/dL (NEGATIVE); RBC, URINE AUTO 1 /HPF (0-3); SPECIFIC GRAVITY URINE AUTO 1.012 (1.002-1.035); SQUAMOUS EPITHELIAL CELL UR AU 0 /HPF (0-6); UROBILINOGEN, URINE AUTO 0.2 mg/dL (0.0-2.0); WBC, URINE AUTO 0 /HPF (0-3)
== END ==
LOC: SKLAB2 07:00
PROVIDERS: ATTEND Internal Medicine
DX: R30.0 Dysuria (principal)

== ENCOUNTER → 2024-06-17 | Outpatient (CLI) | payer OTHER, MEDICARE ==
[~2024-06-17] MED LIST changes: +PEPC10TA6 PO; +PREG25CA PO; +SANT250O8 TOP
== END ==
LOC: M ONCR 13:23
PROVIDERS: ATTEND General Practice
DX: C61 Malignant neoplasm of prostate (principal); C90.00 Multiple myeloma not having achieved remission; M48.56XA Collapsed vertebra, not elsewhere classified, lumbar region, initial encounter for fracture; Z92.3 Personal history of irradiation; Z87.891 Personal history of nicotine dependence; Z88.0 Allergy status to penicillin; Z88.1 Allergy status to other antibiotic agents; Z88.8 Allergy status to other drugs, medicaments and biological substances; Z79.620 Long term (current) use of immunosuppressive biologic; Z79.84 Long term (current) use of oral hypoglycemic drugs; Z79.899 Other long term (current) drug therapy

== ENCOUNTER → 2024-06-20 | Outpatient (CLI) | payer OTHER, MEDICARE ==
[~2024-06-20] MED LIST changes: +ISOVUE-370 76% 100ML VIAL As Ordered ONE
== END ==
LOC: M RAD 09:55
PROVIDERS: ATTEND General Practice
DX: C61 Malignant neoplasm of prostate (principal); M54.9 Dorsalgia, unspecified; K57.90 Diverticulosis of intestine, part unspecified, without perforation or abscess without bleeding; I70.0 Atherosclerosis of aorta; K42.9 Umbilical hernia without obstruction or gangrene; K40.90 Unilateral inguinal hernia, without obstruction or gangrene, not specified as recurrent; M48.54XA Collapsed vertebra, not elsewhere classified, thoracic region, initial encounter for fracture; I25.10 Atherosclerotic heart disease of native coronary artery without angina pectoris; I51.7 Cardiomegaly; J98.11 Atelectasis; J98.09 Other diseases of bronchus, not elsewhere classified

== ENCOUNTER → 2024-06-29 | Outpatient (REF) | payer OTHER, MEDICARE ==
[~2024-06-29] MED LIST changes: -ISOVUE-370 76% 100ML VIAL As Ordered ONE; +OXYC-517 PO
== END ==
LOC: M LAB REF 09:13
PROVIDERS: ATTEND Internal Medicine
DX: E87.5 Hyperkalemia (principal)

== ENCOUNTER → 2024-06-29 | Outpatient (POV) | payer OTHER, MEDICARE ==
[~2024-06-29] VITALS: Ht 172.7 cm; Wt 68.2 kg
[2024-06-29 08:00] VITALS: BP 159/68; O2SAT 100
[2024-06-29 13:52] VITALS: BP 159/68; O2SAT 100
== END ==
LOC: M IRPOV 07:31
PROVIDERS: ATTEND General Practice
DX: M84.48XA Pathological fracture, other site, initial encounter for fracture (principal); C61 Malignant neoplasm of prostate; C90.00 Multiple myeloma not having achieved remission; E11.51 Type 2 diabetes mellitus with diabetic peripheral angiopathy without gangrene; I10 Essential (primary) hypertension; I25.10 Atherosclerotic heart disease of native coronary artery without angina pectoris; I69.954 Hemiplegia and hemiparesis following unspecified cerebrovascular disease affecting left non-dominant side; J44.9 Chronic obstructive pulmonary disease, unspecified; M54.9 Dorsalgia, unspecified; G89.29 Other chronic pain; Z77.098 Contact with and (suspected) exposure to other hazardous, chiefly nonmedicinal, chemicals; Z79.620 Long term (current) use of immunosuppressive biologic; Z79.818 Long term (current) use of other agents affecting estrogen receptors and estrogen levels; Z79.82 Long term (current) use of aspirin; Z79.899 Other long term (current) drug therapy; Z80.0 Family history of malignant neoplasm of digestive organs; Z80.52 Family history of malignant neoplasm of bladder; Z82.0 Family history of epilepsy and other diseases of the nervous system; Z82.49 Family history of ischemic heart disease and other diseases of the circulatory system; Z87.891 Personal history of nicotine dependence; Z88.0 Allergy status to penicillin; Z88.8 Allergy status to other drugs, medicaments and biological substances; Z92.3 Personal history of irradiation; Z98.61 Coronary angioplasty status

== ENCOUNTER → 2024-07-19 | Outpatient (CLI) | payer OTHER, MEDICARE ==
[2024-07-19 14:40] LABS: HEMATOCRIT 28.8 % (42.0-52.0); HEMOGLOBIN 8.6 g/dl (13.5-17.5); MEAN CORPUSCULAR HEMOGLOBIN 29.1 pg (27.0-33.0); MEAN CORPUSCULAR HGB CONC 29.9 g/dl (32.0-36.5); MEAN CORPUSCULAR VOLUME 97.3 fl (80.0-96.0); PLATELET COUNT, AUTOMATED 193 10^3/uL (150-450); RED BLOOD COUNT 2.96 10^6/uL (4.30-6.10); WHITE BLOOD COUNT 6.8 10^3/uL (4.0-10.0)
[2024-07-19 15:10] LABS: BLOOD UREA NITROGEN 28 MG/DL (9-23); CALCIUM LEVEL 9.7 MG/DL (8.3-10.6); CARBON DIOXIDE LEVEL 38 MMOL/L (20-31); CHLORIDE LEVEL 96 MMOL/L (98-107); CREATININE FOR GFR 1.13 MG/DL (0.70-1.30); GLOMERULAR FILTRATION RATE > 60.0 (>42); GLUCOSE, FASTING 163 MG/DL (74-106); POTASSIUM SERUM 4.3 MMOL/L (3.5-5.1); SODIUM LEVEL 138 MMOL/L (136-145)
== END ==
LOC: M RAD 13:27
PROVIDERS: ATTEND Internal Medicine
DX: J44.9 Chronic obstructive pulmonary disease, unspecified (principal)

== ENCOUNTER → 2024-08-12 | Outpatient (CLI) | payer MEDICARE, OTHER ==
[~2024-08-12] MED LIST changes: +LOKE5PAK PO
== END ==
LOC: M RAD 11:42
PROVIDERS: ATTEND Internal Medicine
DX: J16.8 Pneumonia due to other specified infectious organisms (principal); R91.8 Other nonspecific abnormal finding of lung field; I70.0 Atherosclerosis of aorta; I25.10 Atherosclerotic heart disease of native coronary artery without angina pectoris; N28.1 Cyst of kidney, acquired

== ENCOUNTER 2024-08-22 09:36 | Outpatient (CLI) | payer MEDICARE, OTHER ==
[~2024-08-22 09:36] MED LIST changes: +ALBUTEROL SULFATE 2.5MG/0.5ML INH CONCENTRATE NEB SOLN INH PRN; +EPINEPHrine INJ 1 MG/ML 1ML AMP IM PRN; -FLOM0.4C39 PO; +NS (Normal Saline) 0.9% 1,000 ML IV SCH; -PREG25CA PO; +PREG25CA63 PO; +TAMS-18 PO; +diphenhydrAMINE 50MG/ML VIAL IV PRN; +methylPREDNISolone 125MG 2ML VIAL IV PRN
[2024-08-22 09:40] VITALS: BP 136/65; O2SAT 98
[2024-08-22] MEDS: methylPREDNISolone 40MG 1ML VIAL IV ONE (09:55)
[2024-08-22] MEDS: diphenhydrAMINE 25MG CAP PO ONE (09:55)
[2024-08-22] MEDS: IMMUNE GLOBULIN 10% 20 GM in IV 1 EA IV ONE (10:25)
[2024-08-22] MEDS: IMMUNE GLOBULIN 10% 10 GM in IV 1 EA IV ONE (10:26)
[2024-08-22 11:00] VITALS: BP 148/69; O2SAT 94
[2024-08-22 11:30] VITALS: BP 156/83; O2SAT 96
[2024-08-22 12:00] VITALS: BP 151/88; O2SAT 95
[2024-08-22 13:20] VITALS: BP 152/74; O2SAT 96
== END 2024-08-22 13:40 | disposition home or self-care (01) ==
LOC: M INFU 09:36
PROVIDERS: ATTEND Specialist
DX: C90.00 Multiple myeloma not having achieved remission (principal); D80.1 Nonfamilial hypogammaglobulinemia; Z88.0 Allergy status to penicillin; Z88.8 Allergy status to other drugs, medicaments and biological substances
CPT/HCPCS: 96365; 96366; 96375; J1459; J2919

== ENCOUNTER → 2024-10-26 | Outpatient (CLI) | payer OTHER, MEDICARE ==
[~2024-10-26] MED LIST changes: +ADVA1AER8 INH; -ALBUTEROL SULFATE 2.5MG/0.5ML INH CONCENTRATE NEB SOLN INH PRN; +CETI5TAB2 PO; -EPINEPHrine INJ 1 MG/ML 1ML AMP IM PRN; -EQL50TAB2 PO; +FAMO1TAB11 PO; +LIDOCAINE 1% MDV 20 ML VIAL As Ordered ONE; +MAGN250T17 PO; -NS (Normal Saline) 0.9% 1,000 ML IV SCH; +POMA1CAP PO; +POMA2CAP PO; +VITA1TAB82 PO; -diphenhydrAMINE 50MG/ML VIAL IV PRN; -methylPREDNISolone 125MG 2ML VIAL IV PRN
[2024-10-26 14:25] VITALS: BP 131/65; TEMP 99.5; O2SAT 98
== END ==
LOC: M IRPRO 14:06
PROVIDERS: ATTEND Specialist
DX: C90.00 Multiple myeloma not having achieved remission (principal); R22.0 Localized swelling, mass and lump, head; C49.0 Malignant neoplasm of connective and soft tissue of head, face and neck

== ENCOUNTER 2024-11-08 11:32 | Inpatient (IN) | payer OTHER, MEDICARE ==
[~2024-11-08] VITALS: Ht 170.2 cm; Wt 71.2 kg
[~2024-11-08 11:32] MED LIST changes: -CETI5TAB2 PO; -FAMO1TAB11 PO; -LIDOCAINE 1% MDV 20 ML VIAL As Ordered ONE; -MAGN250T17 PO; -PROZ20CA11 PO; +PROZ20CA12 PO
[2024-11-08] MEDS: LIDOCAINE 2% 5 ML JELLY UROJET TOP ONE (11:50)
[2024-11-08 12:42] LABS: BASO # 0.0 10^3/uL (0.0-0.2); BASO % 0.1 % (0.0-1.0); EOS # 0.1 10^3/uL (0.0-0.5); EOS % 1.0 % (0.0-3.0); LYMPH # 0.2 10^3/uL (1.5-5.0); LYMPH % 2.1 % (24.0-44.0); MONO # 0.6 10^3/uL (0.0-0.8); MONO % 6.8 % (2.0-8.0); NEUTROPHILS # 7.7 10^3/uL (1.5-8.5); NEUTROPHILS % 89.3 % (36.0-66.0); PLATELET COUNT, AUTOMATED 106 10^3/uL (150-450)
[2024-11-08 12:43] LABS: VENOUS BASE EXCESS 1.6 (-2.0-2.0); VENOUS HCO3 29.9 MMOL/L (23.0-27.0); VENOUS O2 SATURATION 85.4 % (60.0-80.0); VENOUS PARTIAL PRESSURE CO2 70.0 mmHg (38.0-50.0); VENOUS PARTIAL PRESSURE O2 56.0 mmHg (30.0-50.0); VENOUS PH 7.248 UNITS (7.330-7.430); VENOUS STANDARD HCO3 25.7 MMOL/L; VENOUS TOTAL CO2 32.0 MMOL/L (24.0-28.0)
[2024-11-08 12:54] LABS: KETONE, URINE AUTO RFX NEGATIVE (NEGATIVE); LEUKOCYTE ESTERASE UR AUTO RFX NEGATIVE (NEGATIVE); NITRITE, URINE AUTO RFX NEGATIVE (NEGATIVE); RBC, URINE AUTO RFX 1 /HPF (0-3); SQUAM EPITHELIAL CELL UR AURFX 0 /HPF (0-6); WBC, URINE AUTO RFX 1 /HPF (0-3)
[2024-11-08 13:50] LABS: ALT/SGPT 10 U/L (7.0-40); AST/SGOT 8 U/L (<34); CALCIUM LEVEL 8.6 MG/DL (8.3-10.6); CARBON DIOXIDE LEVEL 30 MMOL/L (20-31); CHLORIDE LEVEL 102 MMOL/L (98-107); CREATININE FOR GFR 1.61 MG/DL (0.70-1.30); GLOMERULAR FILTRATION RATE 44.1 (>42); POTASSIUM SERUM 5.0 MMOL/L (3.5-5.1); SODIUM LEVEL 141 MMOL/L (136-145)
[2024-11-08] MEDS ORDERED: PERCOCET PO (14:01)
[2024-11-08] MEDS ORDERED: FAMO1TAB11 PO (14:01)
[2024-11-08] MEDS ORDERED: MAGN250T17 PO (14:01)
[2024-11-08] MEDS ORDERED: POMA1CAP PO (14:01)
[2024-11-08] MEDS ORDERED: CETI5TAB2 PO (14:01)
[2024-11-08] MEDS ORDERED: HOME MED LIST COMPLETE! XX SCH (14:05)
[2024-11-08] MEDS: CEFEPIME HCL 2 GM in DEXTROSE 5% (D5W) ADV/MINI-BAG 50 ML IV ONE (15:42)
[2024-11-08] MEDS: ACETAMINOPHEN 325 MG TAB PO ONE (15:43)
[2024-11-08] MEDS ORDERED: LEVALBUTEROL 1.25 MG 0.5ML CONCENTRATE NEB INH PRN (16:15)
[2024-11-08] MEDS ORDERED: LEUPROLIDE 45 MG SYRINGE KIT IM SCH (16:15)
[2024-11-08] MEDS ORDERED: IPRATROPIUM 0.5 MG/2.5 ML (0.02%) SOLN NEB INH PRN (16:15)
[2024-11-08 16:37] LABS: C REACTIVE PROTEIN QUANTITATIV 1.15 MG/DL (<1.0)
[2024-11-08 16:49] LABS: ERYTHROCYTE SEDIMENTATION RATE 28 mm/hr (0-20)
[2024-11-08] MEDS: IPRATROPIUM 0.5 MG/2.5 ML (0.02%) SOLN NEB INH SCH (17:22)
[2024-11-08] MEDS ORDERED: IMMUNE GLOBULIN 10% 0 GM in IV 1 EA IV SCH (18:30)
[2024-11-08] MEDS: DOXYCYCLINE HYCLATE 100 MG TABLET PO SCH (18:55)
[2024-11-08] MEDS: ACETAMINOPHEN 500 MG TAB PO ONE (20:27)
[2024-11-08] MEDS: MIRTAZAPINE 15 MG TAB PO SCH (20:27)
[2024-11-08] MEDS: ROSUVASTATIN 10 MG TAB PO SCH (20:27)
[2024-11-08] MEDS: TAMSULOSIN 0.4 MG CAP PO SCH (20:27)
[2024-11-08] MEDS: ASPIRIN 81 MG ENTERIC TABLET PO SCH (20:27)
[2024-11-08] MEDS: IMMUNE GLOBULIN 10% 10 GM in IV 1 EA IV ONE (21:00)
[2024-11-08] MEDS: FERROUS GLUCONATE 324 MG TAB PO SCH (21:44)
[2024-11-08] MEDS: IMMUNE GLOBULIN 10% 5 GM in IV 1 EA IV ONE (21:49)
[2024-11-08] MEDS: IMMUNE GLOBULIN 10% 20 GM in IV 1 EA IV ONE (23:57)
[2024-11-09] MEDS: CEFTAROLINE FOSAMIL 600 MG in DEXTROSE 5% (D5W) ADV/MINI-BAG 50 ML IV SCH (01:23)
[2024-11-09] MEDS: CETIRIZINE 10 MG TAB PO SCH (07:15)
[2024-11-09] MEDS: FINASTERIDE 5 MG TAB PO SCH (07:15)
[2024-11-09] MEDS: FLUoxetine 20 MG CAP PO SCH (07:15)
[2024-11-09] MEDS: FAMOTIDINE 20 MG TAB PO SCH (07:16)
[2024-11-09] MEDS: ISOSORBIDE MONONITRATE 30 MG XR TAB PO SCH (07:18)
[2024-11-09] MEDS: guaiFENesin ER TABLET 600 MG TAB PO SCH (07:18)
[2024-11-09] MEDS ORDERED: PILL CUTTER 1 EACH XX ONE (07:23)
[2024-11-09 07:26] LABS: BASO # 0.0 10^3/uL (0.0-0.2); BASO % 0.0 % (0.0-1.0); EOS # 0.0 10^3/uL (0.0-0.5); EOS % 0.0 % (0.0-3.0); LYMPH # 0.1 10^3/uL (1.5-5.0); LYMPH % 2.0 % (24.0-44.0); MONO # 0.1 10^3/uL (0.0-0.8); MONO % 1.2 % (2.0-8.0); NEUTROPHILS # 4.7 10^3/uL (1.5-8.5); NEUTROPHILS % 95.6 % (36.0-66.0)
[2024-11-09] MEDS: LIDOCAINE 5% PATCH TOP SCH (07:28)
[2024-11-09 07:52] LABS: CALCIUM LEVEL 8.2 MG/DL (8.3-10.6); CARBON DIOXIDE LEVEL 26.0 MMOL/L (20-31); CHLORIDE LEVEL 102.0 MMOL/L (98-107); CREATININE FOR GFR 1.49 MG/DL (0.70-1.30); GLOMERULAR FILTRATION RATE 48.3 (>42); POTASSIUM SERUM 4.6 MMOL/L (3.5-5.1); SODIUM LEVEL 141.0 MMOL/L (136-145)
[2024-11-09 07:58] LABS: PLATELET COUNT, AUTOMATED 97 10^3/uL (150-450)
[2024-11-09] MEDS: NITROGLYCERIN 0.4 MG SUBL TABLET SL ONE (08:00)
[2024-11-09] MEDS: NITROGLYCERIN 0.4 MG SUBL TABLET SL STA (08:07)
[2024-11-09] MEDS: SUCRALFATE SUSP 1GM/10ML UD PO ONE (09:16)
[2024-11-09] MEDS: PANTOPRAZOLE 40MG VIAL IV ONE (09:18)
[2024-11-09] MEDS: MORPHINE 2 MG/ML 1 ML VIAL IV ONE (09:20)
[2024-11-09 09:21] LABS: CK-MB VALUE MASS 4.4 NG/ML (<3.6)
[2024-11-09] MEDS: CEFEPIME HCL 2 GM in DEXTROSE 5% (D5W) ADV/MINI-BAG 50 ML IV SCH (09:21)
[2024-11-09 09:22] LABS: CPK CREATINE PHOSPHOKINASE 22.0 U/L (46-171); MB/CK RELATIVE INDEX 20.0 (< OR =4)
[2024-11-09] MEDS: CALCIUM CARBONATE 500 MG CHEW U/D PO ONE (09:27)
[2024-11-09] MEDS: PREGABALIN 25 MG CAP PO SCH (09:53)
[2024-11-09] MEDS ORDERED: NITROGLYCERIN 0.4 MG SUBL TABLET SL PRN (10:00)
[2024-11-09 11:27] LABS: CK-MB VALUE MASS 3.8 NG/ML (<3.6)
[2024-11-09 11:28] LABS: CPK CREATINE PHOSPHOKINASE < 15 U/L (46-171); MB/CK RELATIVE INDEX 0.00 (< OR =4)
[2024-11-09 12:00] LABS: MYOGLOBIN 65.0 NG/ML (<110)
[2024-11-09] MEDS: SUCRALFATE SUSP 1GM/10ML UD PO SCH (12:14)
[2024-11-09] MEDS: ONDANSETRON 4MG 2ML VIAL IV ONE (14:58)
[2024-11-09 16:42] LABS: CK-MB VALUE MASS 2.3 NG/ML (<3.6)
[2024-11-09 16:49] LABS: CPK CREATINE PHOSPHOKINASE < 15 U/L (46-171); MB/CK RELATIVE INDEX 0.00 (< OR =4)
[2024-11-09 17:49] VITALS: BP 149/67; TEMP 98.3; O2SAT 97
[2024-11-09 19:35] VITALS: BP 121/60; TEMP 98.4; O2SAT 94
[2024-11-09 22:29] LABS: CK-MB VALUE MASS 3.3 NG/ML (<3.6)
[2024-11-09 22:31] LABS: CPK CREATINE PHOSPHOKINASE 17.0 U/L (46-171); MB/CK RELATIVE INDEX 19.41 (< OR =4)
[2024-11-09 23:23] VITALS: BP 139/65; TEMP 97.7; O2SAT 97
[2024-11-10] VITALS (7 sets, daily range): BP systolic 120–167; BP diastolic 55–70; TEMP 97.2–97.9; O2SAT 94–99
[2024-11-10 04:25] LABS: BASO # 0.0 10^3/uL (0.0-0.2); BASO % 0.0 % (0.0-1.0); EOS # 0.0 10^3/uL (0.0-0.5); EOS % 0.3 % (0.0-3.0); LYMPH # 0.2 10^3/uL (1.5-5.0); LYMPH % 4.9 % (24.0-44.0); MONO # 0.4 10^3/uL (0.0-0.8); MONO % 11.1 % (2.0-8.0); NEUTROPHILS # 2.9 10^3/uL (1.5-8.5); NEUTROPHILS % 82.6 % (36.0-66.0)
[2024-11-10 04:46] LABS: CK-MB VALUE MASS 2.0 NG/ML (<3.6)
[2024-11-10 04:47] LABS: CPK CREATINE PHOSPHOKINASE < 15 U/L (46-171); MB/CK RELATIVE INDEX 0.00 (< OR =4)
[2024-11-10 04:48] LABS: PLATELET COUNT, AUTOMATED 87 10^3/uL (150-450)
[2024-11-10 04:49] LABS: CALCIUM LEVEL 7.6 MG/DL (8.3-10.6); CARBON DIOXIDE LEVEL 25.0 MMOL/L (20-31); CHLORIDE LEVEL 105.0 MMOL/L (98-107); CREATININE FOR GFR 1.84 MG/DL (0.70-1.30); GLOMERULAR FILTRATION RATE 37.5 (>42); POTASSIUM SERUM 4.2 MMOL/L (3.5-5.1); SODIUM LEVEL 141.0 MMOL/L (136-145)
[2024-11-10] MEDS ORDERED: FLUMAZENIL 0.5 MG/5 ML VIAL IV PRN (07:25)
[2024-11-10] MEDS ORDERED: PROHANCE 279.3MG/ML 15ML VIAL As Ordered ONE (14:17)
[2024-11-11 03:40] VITALS: BP 149/60; TEMP 97.6; O2SAT 93
[2024-11-11 05:35] LABS: BASO # 0.0 10^3/uL (0.0-0.2); BASO % 0.3 % (0.0-1.0); EOS # 0.0 10^3/uL (0.0-0.5); EOS % 1.2 % (0.0-3.0); LYMPH # 0.2 10^3/uL (1.5-5.0); LYMPH % 6.7 % (24.0-44.0); MONO # 0.4 10^3/uL (0.0-0.8); MONO % 13.1 % (2.0-8.0); NEUTROPHILS # 2.6 10^3/uL (1.5-8.5); NEUTROPHILS % 78.1 % (36.0-66.0)
[2024-11-11 05:59] LABS: CALCIUM LEVEL 7.4 MG/DL (8.3-10.6); CARBON DIOXIDE LEVEL 24.0 MMOL/L (20-31); CHLORIDE LEVEL 108.0 MMOL/L (98-107); CREATININE FOR GFR 1.76 MG/DL (0.70-1.30); GLOMERULAR FILTRATION RATE 39.6 (>42); POTASSIUM SERUM 3.9 MMOL/L (3.5-5.1); SODIUM LEVEL 143.0 MMOL/L (136-145)
[2024-11-11 06:01] LABS: PLATELET COUNT, AUTOMATED 82 10^3/uL (150-450)
[2024-11-11 07:18] VITALS: BP 121/60; TEMP 97.4; O2SAT 100
[2024-11-11 12:14] VITALS: BP 141/65; TEMP 97.4; O2SAT 98
[2024-11-11 15:50] VITALS: BP 129/62; TEMP 98.1; O2SAT 98
[2024-11-11] MEDS: PERCOCET 5MG/325MG TAB PO PRN (16:28)
[2024-11-11 19:31] VITALS: BP 140/60; TEMP 96.8; O2SAT 95
[2024-11-11] MEDS: CYCLOBENZAPRINE 5 MG TABLET PO ONE (20:38)
[2024-11-11] MEDS: ACETAMINOPHEN 650 MG ER TAB PO PRN (21:21)
[2024-11-11 21:48] LABS: URINE STREP PNEUMONIAE ANTIGEN Not Detected (Not Detected)
[2024-11-11 22:43] LABS: MYCOPLASMA PNEUMONIAE IGG 2.44 (<=0.90); MYCOPLASMA PNEUMONIAE IGM 49.0 U/mL (<770)
[2024-11-12 04:00] VITALS: BP 148/72; TEMP 97.8; O2SAT 93
[2024-11-12 05:06] LABS: BASO # 0.0 10^3/uL (0.0-0.2); BASO % 0.3 % (0.0-1.0); EOS # 0.1 10^3/uL (0.0-0.5); EOS % 1.5 % (0.0-3.0); LYMPH # 0.2 10^3/uL (1.5-5.0); LYMPH % 3.8 % (24.0-44.0); MONO # 0.4 10^3/uL (0.0-0.8); MONO % 10.7 % (2.0-8.0); NEUTROPHILS # 3.2 10^3/uL (1.5-8.5); NEUTROPHILS % 82.9 % (36.0-66.0)
[2024-11-12 05:11] LABS: PLATELET COUNT, AUTOMATED 73 10^3/uL (150-450)
[2024-11-12 05:30] LABS: CALCIUM LEVEL 7.5 MG/DL (8.3-10.6); CARBON DIOXIDE LEVEL 26.0 MMOL/L (20-31); CHLORIDE LEVEL 109.0 MMOL/L (98-107); CREATININE FOR GFR 1.72 MG/DL (0.70-1.30); GLOMERULAR FILTRATION RATE 40.7 (>42); POTASSIUM SERUM 4.1 MMOL/L (3.5-5.1); SODIUM LEVEL 144.0 MMOL/L (136-145)
[2024-11-12 08:03] VITALS: BP 148/73; TEMP 98.1; O2SAT 97
[2024-11-12 16:00] VITALS: BP 137/62; TEMP 98; O2SAT 98
[2024-11-12 19:40] VITALS: BP 129/59; TEMP 97.7; O2SAT 98
[2024-11-13 03:24] VITALS: BP 119/83; TEMP 97.2; O2SAT 97
[2024-11-13 05:06] LABS: BASO # 0.0 10^3/uL (0.0-0.2); BASO % 0.3 % (0.0-1.0); EOS # 0.1 10^3/uL (0.0-0.5); EOS % 1.8 % (0.0-3.0); LYMPH # 0.2 10^3/uL (1.5-5.0); LYMPH % 5.8 % (24.0-44.0); MONO # 0.4 10^3/uL (0.0-0.8); MONO % 9.3 % (2.0-8.0); NEUTROPHILS # 3.3 10^3/uL (1.5-8.5); NEUTROPHILS % 82.0 % (36.0-66.0)
[2024-11-13 05:11] LABS: PLATELET COUNT, AUTOMATED 71 10^3/uL (150-450)
[2024-11-13 05:29] LABS: CALCIUM LEVEL 7.6 MG/DL (8.3-10.6); CARBON DIOXIDE LEVEL 24.0 MMOL/L (20-31); CHLORIDE LEVEL 110.0 MMOL/L (98-107); CREATININE FOR GFR 1.89 MG/DL (0.70-1.30); GLOMERULAR FILTRATION RATE 36.3 (>42); POTASSIUM SERUM 3.9 MMOL/L (3.5-5.1); SODIUM LEVEL 144.0 MMOL/L (136-145)
[2024-11-13 08:19] VITALS: BP 180/79; TEMP 97.4; O2SAT 99
[2024-11-13] MEDS: POTASSIUM CHLORIDE 10MEQ SR TABLET PO ONE (10:21)
[2024-11-13] MEDS: FUROSEMIDE 40 MG/4 ML VIAL IV ONE (10:25)
[2024-11-13 15:41] VITALS: BP 155/70; TEMP 98.7; O2SAT 98
[2024-11-13 19:20] VITALS: BP 139/65; TEMP 98.6; O2SAT 97
[2024-11-13] MEDS: CYCLOBENZAPRINE 5 MG TABLET PO PRN (20:24)
[2024-11-14] VITALS (10 sets, daily range): BP systolic 114–168; BP diastolic 52–72; TEMP 97.4–103; O2SAT 85–98
[2024-11-14 05:23] LABS: BASO # 0.0 10^3/uL (0.0-0.2); BASO % 0.2 % (0.0-1.0); EOS # 0.1 10^3/uL (0.0-0.5); EOS % 1.2 % (0.0-3.0); LYMPH # 0.3 10^3/uL (1.5-5.0); LYMPH % 5.6 % (24.0-44.0); MONO # 0.5 10^3/uL (0.0-0.8); MONO % 10.1 % (2.0-8.0); NEUTROPHILS # 4.0 10^3/uL (1.5-8.5); NEUTROPHILS % 82.5 % (36.0-66.0)
[2024-11-14 05:24] LABS: PLATELET COUNT, AUTOMATED 76 10^3/uL (150-450)
[2024-11-14 05:46] LABS: CALCIUM LEVEL 7.6 MG/DL (8.3-10.6); CARBON DIOXIDE LEVEL 25.0 MMOL/L (20-31); CHLORIDE LEVEL 109.0 MMOL/L (98-107); CREATININE FOR GFR 1.96 MG/DL (0.70-1.30); GLOMERULAR FILTRATION RATE 34.8 (>42); POTASSIUM SERUM 4.5 MMOL/L (3.5-5.1); SODIUM LEVEL 142.0 MMOL/L (136-145)
[2024-11-14] MEDS: TORSEMIDE 20 MG TAB PO SCH (12:43)
[2024-11-14] MEDS: ONDANSETRON 4MG 2ML VIAL IV PRN (15:10)
[2024-11-14] MEDS: dexAMETHasone 4 MG/ML 1 ML VIAL IV ONE (15:41)
[2024-11-14] MEDS: ACETAMINOPHEN 325 MG TAB PO PRN (16:33)
[2024-11-14] MEDS: CYCLOBENZAPRINE 5 MG TABLET PO SCH (21:00)
[2024-11-14 23:46] LABS: ABG BASE EXCESS -9.8 (-2.0-2.0); ABG HCO3 20.1 MMOL/L (22.0-26.0); ABG O2 SATURATION 98.4 % (95.0-99.0); ABG PARTIAL PRESSURE CO2 68.4 mmHg (35.0-45.0); ABG PARTIAL PRESSURE O2 149.7 mmHg (75.0-100.0); ABG STANDARD HCO3 16.5 MMOL/L. (22.0-26.0); ABG TOTAL CO2 22.2 MMOL/L (23.0-31.0); ABG pH (ARTERIAL) 7.086 UNITS (7.350-7.450)
[2024-11-15] VITALS (42 sets, daily range): BP systolic 103–165; BP diastolic 51–73; TEMP 97–99.3; O2SAT 96–100
[2024-11-15] MEDS: SODIUM BICARBONATE 8.4% INJ 50ML SYRINGE IV STA (00:12)
[2024-11-15 00:43] LABS: BASO # 0.0 10^3/uL (0.0-0.2); BASO % 0.1 % (0.0-1.0); EOS # 0.0 10^3/uL (0.0-0.5); EOS % 0.0 % (0.0-3.0); LYMPH # 0.1 10^3/uL (1.5-5.0); LYMPH % 0.5 % (24.0-44.0); MONO # 0.3 10^3/uL (0.0-0.8); MONO % 1.9 % (2.0-8.0); NEUTROPHILS # 12.6 10^3/uL (1.5-8.5); NEUTROPHILS % 96.5 % (36.0-66.0)
[2024-11-15 00:45] LABS: PLATELET COUNT, AUTOMATED 78 10^3/uL (150-450)
[2024-11-15 00:55] LABS: ABG BASE EXCESS -3.8 (-2.0-2.0); ABG HCO3 27.5 MMOL/L (22.0-26.0); ABG O2 SATURATION 96.7 % (95.0-99.0); ABG PARTIAL PRESSURE O2 111.3 mmHg (75.0-100.0); ABG STANDARD HCO3 21.2 MMOL/L. (22.0-26.0); ABG TOTAL CO2 30.6 MMOL/L (23.0-31.0)
[2024-11-15 00:58] LABS: ABG pH (ARTERIAL) 7.062 UNITS (7.350-7.450)
[2024-11-15 00:59] LABS: ABG PARTIAL PRESSURE CO2 99.0 mmHg (35.0-45.0)
[2024-11-15 01:19] LABS: C REACTIVE PROTEIN QUANTITATIV 6.37 MG/DL (<1.0)
[2024-11-15 03:13] LABS: ABG BASE EXCESS -3.2 (-2.0-2.0); ABG HCO3 27.0 MMOL/L (22.0-26.0); ABG O2 SATURATION 98.3 % (95.0-99.0); ABG PARTIAL PRESSURE O2 185.3 mmHg (75.0-100.0); ABG STANDARD HCO3 21.8 MMOL/L. (22.0-26.0); ABG TOTAL CO2 29.6 MMOL/L (23.0-31.0)
[2024-11-15 03:18] LABS: ABG PARTIAL PRESSURE CO2 84.7 mmHg (35.0-45.0); ABG pH (ARTERIAL) 7.121 UNITS (7.350-7.450)
[2024-11-15 03:31] LABS: ALT/SGPT 21.0 U/L (7.0-40); AST/SGOT 51.0 U/L (<34); CALCIUM LEVEL 7.8 MG/DL (8.3-10.6); CARBON DIOXIDE LEVEL 30.0 MMOL/L (20-31); CHLORIDE LEVEL 106.0 MMOL/L (98-107); CREATININE FOR GFR 2.07 MG/DL (0.70-1.30); GLOMERULAR FILTRATION RATE 32.6 (>42); SODIUM LEVEL 142.0 MMOL/L (136-145)
[2024-11-15] MEDS: ACETAMINOPHEN *IV* 1,000 MG in IV 1 EA IV ONE ×2 (04:34→11:37)
[2024-11-15 04:56] LABS: POTASSIUM SERUM 5.5 MMOL/L (3.5-5.1)
[2024-11-15 04:58] LABS: ABG BASE EXCESS -4.0 (-2.0-2.0); ABG HCO3 25.2 MMOL/L (22.0-26.0); ABG O2 SATURATION 97.3 % (95.0-99.0); ABG PARTIAL PRESSURE O2 111.8 mmHg (75.0-100.0); ABG STANDARD HCO3 21.1 MMOL/L. (22.0-26.0); ABG TOTAL CO2 27.4 MMOL/L (23.0-31.0)
[2024-11-15 04:59] LABS: ABG pH (ARTERIAL) 7.159 UNITS (7.350-7.450)
[2024-11-15 05:00] LABS: ABG PARTIAL PRESSURE CO2 72.5 mmHg (35.0-45.0)
[2024-11-15 05:10] LABS: BASO # 0.0 10^3/uL (0.0-0.2); BASO % 0.0 % (0.0-1.0); EOS # 0.0 10^3/uL (0.0-0.5); EOS % 0.0 % (0.0-3.0); LYMPH # 0.1 10^3/uL (1.5-5.0); LYMPH % 0.7 % (24.0-44.0); MONO # 0.4 10^3/uL (0.0-0.8); MONO % 3.2 % (2.0-8.0); NEUTROPHILS # 11.5 10^3/uL (1.5-8.5); NEUTROPHILS % 95.3 % (36.0-66.0)
[2024-11-15 05:23] LABS: PLATELET COUNT, AUTOMATED 87 10^3/uL (150-450)
[2024-11-15 05:34] LABS: CALCIUM LEVEL 7.8 MG/DL (8.3-10.6); CARBON DIOXIDE LEVEL 28.0 MMOL/L (20-31); CHLORIDE LEVEL 106.0 MMOL/L (98-107); CREATININE FOR GFR 2.17 MG/DL (0.70-1.30); GLOMERULAR FILTRATION RATE 30.8 (>42); POTASSIUM SERUM 5.4 MMOL/L (3.5-5.1); SODIUM LEVEL 143.0 MMOL/L (136-145)
[2024-11-15] MEDS ORDERED: PATIROMER SORBITEX CALCIUM 8.4GM POWDER PACKET PO ONE (06:15)
[2024-11-15 06:20] LABS: ABG BASE EXCESS -4.3 (-2.0-2.0); ABG HCO3 24.4 MMOL/L (22.0-26.0); ABG O2 SATURATION 97.7 % (95.0-99.0); ABG PARTIAL PRESSURE O2 110.0 mmHg (75.0-100.0); ABG STANDARD HCO3 20.9 MMOL/L. (22.0-26.0); ABG TOTAL CO2 26.4 MMOL/L (23.0-31.0)
[2024-11-15 06:21] LABS: ABG PARTIAL PRESSURE CO2 66.7 mmHg (35.0-45.0); ABG pH (ARTERIAL) 7.181 UNITS (7.350-7.450)
[2024-11-15] MEDS: DEXTROSE 50% 50 ML SYRINGE IV STA (06:35)
[2024-11-15] MEDS: HumuLIN R (REGULAR) INSULIN (NovoLIN R) **100 U/ML** PER UNIT IV STA (06:36)
[2024-11-15] MEDS ORDERED: ACETAMINOPHEN *IV* 1,000 MG in IV 1 EA IV SCH (08:00)
[2024-11-15] MEDS ORDERED: MIDODRINE 5 MG TAB PO ONE (08:55)
[2024-11-15] MEDS: ISOSORBIDE MONONITRATE 30 MG XR TAB PO SCH (09:00)
[2024-11-15] MEDS ORDERED: NS 500 ML IV ONE (09:05)
[2024-11-15 10:33] LABS: ABG BASE EXCESS -2.3 (-2.0-2.0); ABG HCO3 26.6 MMOL/L (22.0-26.0); ABG O2 SATURATION 97.7 % (95.0-99.0); ABG PARTIAL PRESSURE O2 119.4 mmHg (75.0-100.0); ABG STANDARD HCO3 22.5 MMOL/L. (22.0-26.0); ABG TOTAL CO2 28.9 MMOL/L (23.0-31.0)
[2024-11-15 10:38] LABS: ABG PARTIAL PRESSURE CO2 74.5 mmHg (35.0-45.0); ABG pH (ARTERIAL) 7.171 UNITS (7.350-7.450)
[2024-11-15] MEDS: [UNRECOGNIZED DRUG - REMARK] SC SCH (10:45)
[2024-11-15] MEDS: dexAMETHasone 4 MG/ML 1 ML VIAL IV ONE (11:35)
[2024-11-15 12:19] LABS: VENOUS BASE EXCESS 0.3 (-2.0-2.0); VENOUS HCO3 24.2 MMOL/L (23.0-27.0); VENOUS O2 SATURATION 98.5 % (60.0-80.0); VENOUS PARTIAL PRESSURE CO2 36.0 mmHg (38.0-50.0); VENOUS PARTIAL PRESSURE O2 184.6 mmHg (30.0-50.0); VENOUS PH 7.446 UNITS (7.330-7.430); VENOUS STANDARD HCO3 24.8 MMOL/L; VENOUS TOTAL CO2 25.3 MMOL/L (24.0-28.0)
[2024-11-15] MEDS: HEPARIN SOD 5000 UNITS/ML 1 ML VIAL/SYRINGE SQ SCH (18:03)
[2024-11-15] MEDS: ACETAMINOPHEN *IV* 1,000 MG in IV 1 EA IV SCH (20:28)
[2024-11-16] VITALS (18 sets, daily range): BP systolic 97–166; BP diastolic 51–77; TEMP 97.1–98.4; O2SAT 97–100
[2024-11-16 04:51] LABS: BASO # 0.0 10^3/uL (0.0-0.2); BASO % 0.0 % (0.0-1.0); EOS # 0.0 10^3/uL (0.0-0.5); EOS % 0.0 % (0.0-3.0); LYMPH # 0.2 10^3/uL (1.5-5.0); LYMPH % 2.1 % (24.0-44.0); MONO # 0.4 10^3/uL (0.0-0.8); MONO % 5.5 % (2.0-8.0); NEUTROPHILS # 6.5 10^3/uL (1.5-8.5); NEUTROPHILS % 91.6 % (36.0-66.0)
[2024-11-16 05:15] LABS: ALT/SGPT 18.0 U/L (7.0-40); AST/SGOT 24.0 U/L (<34); CALCIUM LEVEL 7.4 MG/DL (8.3-10.6); CARBON DIOXIDE LEVEL 24.0 MMOL/L (20-31); CHLORIDE LEVEL 104.0 MMOL/L (98-107); CREATININE FOR GFR 2.78 MG/DL (0.70-1.30); GLOMERULAR FILTRATION RATE 22.9 (>42); MAGNESIUM LEVEL 1.7 MG/DL (1.8-2.4); PHOSPHORUS LEVEL 3.2 MG/DL (2.4-5.1); POTASSIUM SERUM 5.0 MMOL/L (3.5-5.1); SODIUM LEVEL 140.0 MMOL/L (136-145)
[2024-11-16] MEDS: MAG SULF 1GM/100ML (MAG RUN) 1 GM in IV 1 EA IV SCH (05:38)
[2024-11-16 05:46] LABS: PLATELET COUNT, AUTOMATED 77 10^3/uL (150-450)
[2024-11-16] MEDS: PATIROMER SORBITEX CALCIUM 8.4GM POWDER PACKET PO ONE (09:59)
[2024-11-16] MEDS: LR 1,000 ML IV SCH (10:00)
[2024-11-16] MEDS ORDERED: LR 1,000 ML IV ONE (12:00)
[2024-11-17] VITALS (14 sets, daily range): BP systolic 120–174; BP diastolic 57–87; TEMP 97.7–99.2; O2SAT 93–100
[2024-11-17] MEDS: LEVALBUTEROL 1.25 MG 0.5ML CONCENTRATE NEB INH SCH (08:21)
[2024-11-17 08:28] LABS: BASO # 0.0 10^3/uL (0.0-0.2); BASO % 0.3 % (0.0-1.0); EOS # 0.0 10^3/uL (0.0-0.5); EOS % 0.3 % (0.0-3.0); LYMPH # 0.2 10^3/uL (1.5-5.0); LYMPH % 7.0 % (24.0-44.0); MONO # 0.3 10^3/uL (0.0-0.8); MONO % 9.5 % (2.0-8.0); NEUTROPHILS # 2.7 10^3/uL (1.5-8.5); NEUTROPHILS % 82.3 % (36.0-66.0)
[2024-11-17 08:38] LABS: PLATELET COUNT, AUTOMATED 70 10^3/uL (150-450)
[2024-11-17 09:16] LABS: ALT/SGPT 16 U/L (7.0-40); AST/SGOT 15 U/L (<34); CALCIUM LEVEL 7.0 MG/DL (8.3-10.6); CARBON DIOXIDE LEVEL 24 MMOL/L (20-31); CHLORIDE LEVEL 105 MMOL/L (98-107); CREATININE FOR GFR 2.89 MG/DL (0.70-1.30); GLOMERULAR FILTRATION RATE 21.8 (>42); MAGNESIUM LEVEL 2.0 MG/DL (1.8-2.4); POTASSIUM SERUM 4.2 MMOL/L (3.5-5.1); SODIUM LEVEL 139 MMOL/L (136-145)
[2024-11-17] MEDS: IPRATROPIUM 0.5 MG/2.5 ML (0.02%) SOLN NEB INH SCH (11:18)
[2024-11-17] MEDS ORDERED: ACETAMINOPHEN 500 MG TAB As Ordered ONE (12:22)
[2024-11-17] MEDS: ACETAMINOPHEN 500 MG TAB PO ONE (12:48)
[2024-11-17 18:32] LABS: D-DIMER QUANT 0.71 ug/mL (<0.5); INR 1.08
[2024-11-18] VITALS: BP 168/76; TEMP 98.6; O2SAT 96
[2024-11-18 04:00] VITALS: BP 170/76; TEMP 98.2; O2SAT 93
[2024-11-18 05:09] LABS: BASO # 0.0 10^3/uL (0.0-0.2); BASO % 0.0 % (0.0-1.0); EOS # 0.0 10^3/uL (0.0-0.5); EOS % 0.7 % (0.0-3.0); LYMPH # 0.2 10^3/uL (1.5-5.0); LYMPH % 5.9 % (24.0-44.0); MONO # 0.3 10^3/uL (0.0-0.8); MONO % 11.5 % (2.0-8.0); NEUTROPHILS # 2.3 10^3/uL (1.5-8.5); NEUTROPHILS % 80.5 % (36.0-66.0)
[2024-11-18 05:13] LABS: PLATELET COUNT, AUTOMATED 67 10^3/uL (150-450)
[2024-11-18 05:36] LABS: CALCIUM LEVEL 7.1 MG/DL (8.3-10.6); CARBON DIOXIDE LEVEL 24.0 MMOL/L (20-31); CHLORIDE LEVEL 108.0 MMOL/L (98-107); CREATININE FOR GFR 2.84 MG/DL (0.70-1.30); GLOMERULAR FILTRATION RATE 22.3 (>42); MAGNESIUM LEVEL 1.8 MG/DL (1.8-2.4); POTASSIUM SERUM 4.2 MMOL/L (3.5-5.1); SODIUM LEVEL 145.0 MMOL/L (136-145)
[2024-11-18 08:00] VITALS: BP 188/82; TEMP 98.8; O2SAT 97
[2024-11-18] MEDS: ACETAMINOPHEN 325 MG TAB PO PRN (10:04)
[2024-11-18] MEDS: amLODIPine 10 MG TAB PO ONE (10:05)
[2024-11-18 11:53] VITALS: BP 183/81; TEMP 99; O2SAT 96
[2024-11-18] MEDS: **hydrALAZINE** 10 MG TAB PO SCH (11:54)
[2024-11-18 16:00] VITALS: BP 131/63; TEMP 99; O2SAT 95
[2024-11-18 20:00] VITALS: BP 158/72; TEMP 99.3; O2SAT 94
[2024-11-19] VITALS (7 sets, daily range): BP systolic 128–154; BP diastolic 59–81; TEMP 97.7–99; O2SAT 90–97
[2024-11-19 04:23] LABS: BASO # 0.0 10^3/uL (0.0-0.2); BASO % 0.0 % (0.0-1.0); EOS # 0.0 10^3/uL (0.0-0.5); EOS % 0.7 % (0.0-3.0); LYMPH # 0.2 10^3/uL (1.5-5.0); LYMPH % 4.9 % (24.0-44.0); MONO # 0.4 10^3/uL (0.0-0.8); MONO % 12.7 % (2.0-8.0); NEUTROPHILS # 2.5 10^3/uL (1.5-8.5); NEUTROPHILS % 81.0 % (36.0-66.0)
[2024-11-19 04:27] LABS: PLATELET COUNT, AUTOMATED 74 10^3/uL (150-450)
[2024-11-19 04:45] LABS: CALCIUM LEVEL 6.7 MG/DL (8.3-10.6); CARBON DIOXIDE LEVEL 26.0 MMOL/L (20-31); CHLORIDE LEVEL 109.0 MMOL/L (98-107); CREATININE FOR GFR 2.4 MG/DL (0.70-1.30); GLOMERULAR FILTRATION RATE 27.3 (>42); MAGNESIUM LEVEL 1.5 MG/DL (1.8-2.4); POTASSIUM SERUM 4.0 MMOL/L (3.5-5.1); SODIUM LEVEL 145.0 MMOL/L (136-145)
[2024-11-19] MEDS: MAG SULF 1GM/100ML (MAG RUN) 1 GM in IV 1 EA IV SCH (05:49)
[2024-11-19] MEDS ORDERED: HEPARIN SOD 5000 UNITS/ML 1 ML VIAL/SYRINGE SQ SCH (07:05)
[2024-11-19] MEDS: SENNOSIDES/DOCUSATE SODIUM 8.6 MG/50MG TAB PO PRN (08:23)
[2024-11-19] MEDS: amLODIPine 10 MG TAB PO SCH (08:23)
[2024-11-19] MEDS: ENOXAPARIN 30 MG/0.3 ML SYRINGE (J1650 PER 10MG) SC SCH (08:24)
[2024-11-19] MEDS: POLYVINYL ALCOHOL OPHTH SOLN 15ML (LIQUITEARS) OU SCH (19:32)
[2024-11-19] MEDS: BISACODYL 5 MG TAB PO PRN (20:21)
[2024-11-20] VITALS (11 sets, daily range): BP systolic 126–148; BP diastolic 60–84; TEMP 98.1–99; O2SAT 90–92
[2024-11-20 06:43] LABS: BASO # 0.0 10^3/uL (0.0-0.2); BASO % 0.3 % (0.0-1.0); EOS # 0.1 10^3/uL (0.0-0.5); EOS % 1.8 % (0.0-3.0); LYMPH # 0.2 10^3/uL (1.5-5.0); LYMPH % 4.4 % (24.0-44.0); MONO # 0.4 10^3/uL (0.0-0.8); MONO % 11.7 % (2.0-8.0); NEUTROPHILS # 2.8 10^3/uL (1.5-8.5); NEUTROPHILS % 81.2 % (36.0-66.0)
[2024-11-20 06:53] LABS: PLATELET COUNT, AUTOMATED 72 10^3/uL (150-450)
[2024-11-20 07:04] LABS: CALCIUM LEVEL 6.7 MG/DL (8.3-10.6); CARBON DIOXIDE LEVEL 26.0 MMOL/L (20-31); CHLORIDE LEVEL 109.0 MMOL/L (98-107); CREATININE FOR GFR 2.15 MG/DL (0.70-1.30); GLOMERULAR FILTRATION RATE 31.1 (>42); MAGNESIUM LEVEL 1.6 MG/DL (1.8-2.4); POTASSIUM SERUM 3.7 MMOL/L (3.5-5.1); SODIUM LEVEL 147.0 MMOL/L (136-145)
[2024-11-20] MEDS: CALCIUM GLUCONATE 1,000 MG in DEXTROSE 5% (D5W) MINI-BAG PLU 100 ML IV ONE (08:48)
[2024-11-20] MEDS ORDERED: PILL CUTTER 1 EACH XX PRN (08:55)
[2024-11-20] MEDS: MAG SULF 1GM/100ML (MAG RUN) 1 GM in IV 1 EA IV ONE ×2 (11:36→12:48)
[2024-11-20 12:26] LABS: LDH LACTATE DEHYDROGENASE 199.0 U/L (120-246)
[2024-11-20 19:14] LABS: CALCIUM LEVEL 7.0 MG/DL (8.3-10.6); CARBON DIOXIDE LEVEL 25.0 MMOL/L (20-31); CHLORIDE LEVEL 107.0 MMOL/L (98-107); CREATININE FOR GFR 2.06 MG/DL (0.70-1.30); GLOMERULAR FILTRATION RATE 32.8 (>42); MAGNESIUM LEVEL 1.9 MG/DL (1.8-2.4); POTASSIUM SERUM 3.5 MMOL/L (3.5-5.1); SODIUM LEVEL 145.0 MMOL/L (136-145)
[2024-11-20] MEDS: MIRALAX *UNIT DOSE* 17 GM PACKET PO PRN (20:40)
[2024-11-20] MEDS: PANTOPRAZOLE 40MG TAB PO SCH (20:42)
[2024-11-20] MEDS ORDERED: SUCRALFATE SUSP 1GM/10ML UD PO SCH (21:00)
[2024-11-21 00:44] VITALS: O2SAT 93
[2024-11-21 03:07] VITALS: BP 131/72; TEMP 97.9; O2SAT 93
[2024-11-21 07:17] LABS: BASO # 0.0 10^3/uL (0.0-0.2); BASO % 0.3 % (0.0-1.0); EOS # 0.1 10^3/uL (0.0-0.5); EOS % 2.1 % (0.0-3.0); LYMPH # 0.1 10^3/uL (1.5-5.0); LYMPH % 4.8 % (24.0-44.0); MONO # 0.3 10^3/uL (0.0-0.8); MONO % 9.9 % (2.0-8.0); NEUTROPHILS # 2.4 10^3/uL (1.5-8.5); NEUTROPHILS % 82.2 % (36.0-66.0)
[2024-11-21 07:18] LABS: PLATELET COUNT, AUTOMATED 75 10^3/uL (150-450)
[2024-11-21 07:43] LABS: C REACTIVE PROTEIN QUANTITATIV 3.6 MG/DL (<1.0); CALCIUM LEVEL 7.4 MG/DL (8.3-10.6); CARBON DIOXIDE LEVEL 27.0 MMOL/L (20-31); CHLORIDE LEVEL 108.0 MMOL/L (98-107); CREATININE FOR GFR 2.03 MG/DL (0.70-1.30); GLOMERULAR FILTRATION RATE 33.4 (>42); MAGNESIUM LEVEL 1.9 MG/DL (1.8-2.4); POTASSIUM SERUM 3.7 MMOL/L (3.5-5.1); SODIUM LEVEL 146.0 MMOL/L (136-145)
[2024-11-21 07:51] LABS: ERYTHROCYTE SEDIMENTATION RATE 50 mm/hr (0-20)
[2024-11-21] MEDS: POTASSIUM CHLORIDE 10MEQ SR TABLET PO ONE (10:18)
[2024-11-21] MEDS: FUROSEMIDE 40 MG/4 ML VIAL IV ONE (10:18)
[2024-11-21 11:37] VITALS: BP 136/74; TEMP 98.6; O2SAT 95
[2024-11-21 20:20] VITALS: BP 141/73; TEMP 98.8; O2SAT 92
[2024-11-21 22:20] VITALS: O2SAT 92
[2024-11-22] VITALS (8 sets, daily range): BP systolic 110–140; BP diastolic 59–79; TEMP 97.9–98.7; O2SAT 88–94
[2024-11-22 01:22] LABS: HEP INDUCED PLT AB PATIENT OD 0.085 OD UNITS (<=0.300); HEPARIN INDUCED PLATELET ABY Negative (Negative)
[2024-11-22 06:41] LABS: BASO # 0.0 10^3/uL (0.0-0.2); BASO % 0.3 % (0.0-1.0); EOS # 0.1 10^3/uL (0.0-0.5); EOS % 2.5 % (0.0-3.0); LYMPH # 0.2 10^3/uL (1.5-5.0); LYMPH % 5.1 % (24.0-44.0); MONO # 0.3 10^3/uL (0.0-0.8); MONO % 9.8 % (2.0-8.0); NEUTROPHILS # 2.6 10^3/uL (1.5-8.5); NEUTROPHILS % 82.0 % (36.0-66.0)
[2024-11-22 06:45] LABS: PLATELET COUNT, AUTOMATED 77 10^3/uL (150-450)
[2024-11-22 07:36] LABS: CALCIUM LEVEL 6.6 MG/DL (8.3-10.6); CARBON DIOXIDE LEVEL 25.0 MMOL/L (20-31); CHLORIDE LEVEL 108.0 MMOL/L (98-107); CREATININE FOR GFR 2.11 MG/DL (0.70-1.30); GLOMERULAR FILTRATION RATE 31.8 (>42); MAGNESIUM LEVEL 1.6 MG/DL (1.8-2.4); POTASSIUM SERUM 4.2 MMOL/L (3.5-5.1); SODIUM LEVEL 145.0 MMOL/L (136-145)
[2024-11-22] MEDS ORDERED: BARIUM SULFATE 700 MG TABLET As Ordered ONE (10:52)
[2024-11-22] MEDS ORDERED: E-Z-PAQUE 96% w/w SUSP 176 GM BTL As Ordered ONE (10:52)
[2024-11-22] MEDS ORDERED: VARIBAR PUDDING 40% w/v 230ML TUBE As Ordered ONE (10:53)
[2024-11-22] MEDS ORDERED: VARIBAR NECTAR 40% w/v 240ML SUSP BTL As Ordered ONE (10:53)
[2024-11-22] MEDS: FUROSEMIDE 40 MG/4 ML VIAL IV ONE (11:45)
[2024-11-23 04:50] VITALS: BP 101/60; TEMP 97.9; O2SAT 94
[2024-11-23 05:37] LABS: VENOUS BASE EXCESS -3.4 (-2.0-2.0); VENOUS HCO3 23.9 MMOL/L (23.0-27.0); VENOUS O2 SATURATION 92.9 % (60.0-80.0); VENOUS PARTIAL PRESSURE CO2 54.3 mmHg (38.0-50.0); VENOUS PARTIAL PRESSURE O2 72.8 mmHg (30.0-50.0); VENOUS PH 7.261 UNITS (7.330-7.430); VENOUS STANDARD HCO3 21.5 MMOL/L; VENOUS TOTAL CO2 25.5 MMOL/L (24.0-28.0)
[2024-11-23 05:46] LABS: BASO # 0.0 10^3/uL (0.0-0.2); BASO % 0.0 % (0.0-1.0); EOS # 0.1 10^3/uL (0.0-0.5); EOS % 2.3 % (0.0-3.0); LYMPH # 0.1 10^3/uL (1.5-5.0); LYMPH % 4.7 % (24.0-44.0); MONO # 0.3 10^3/uL (0.0-0.8); MONO % 11.4 % (2.0-8.0); NEUTROPHILS # 2.4 10^3/uL (1.5-8.5); NEUTROPHILS % 80.9 % (36.0-66.0)
[2024-11-23 05:53] LABS: PLATELET COUNT, AUTOMATED 78 10^3/uL (150-450)
[2024-11-23 06:20] LABS: CALCIUM LEVEL 6.7 MG/DL (8.3-10.6); CARBON DIOXIDE LEVEL 26 MMOL/L (20-31); CHLORIDE LEVEL 107 MMOL/L (98-107); CREATININE FOR GFR 2.27 MG/DL (0.70-1.30); GLOMERULAR FILTRATION RATE 29.2 (>42); MAGNESIUM LEVEL 1.5 MG/DL (1.8-2.4); POTASSIUM SERUM 4.2 MMOL/L (3.5-5.1); SODIUM LEVEL 144 MMOL/L (136-145)
[2024-11-23] MEDS: ADVAIR HFA 45/21 MCG INHALER INH SCH (07:46)
[2024-11-23] MEDS: MAG SULF 1GM/100ML (MAG RUN) 1 GM in IV 1 EA IV ONE (08:19)
[2024-11-23 10:26] VITALS: BP 127/67
[2024-11-23] MEDS: FUROSEMIDE 100 MG/10 ML VIAL IV ONE (10:26)
[2024-11-23 11:34] VITALS: BP 123/66; TEMP 98.6; O2SAT 95
[2024-11-23 12:11] LABS: FREE KAPPA LIGHT CHAINS SERUM 6.6 mg/L (3.3-19.4); FREE LAMBDA LIGHT CHAINS SERUM 4893.1 mg/L (5.7-26.3); KAPPA/LAMBDA RATIO SERUM < 0.01 (0.26-1.65)
[2024-11-23] MEDS ORDERED: SUCR1TA PO (12:48)
[2024-11-23] MEDS ORDERED: CARV25TA PO (12:48)
[2024-11-23] MEDS ORDERED: DOCU8.6T PO (12:48)
[2024-11-23] MEDS ORDERED: PANT40TA29 PO (12:48)
[2024-11-23] MEDS ORDERED: LIDOCAINE 2% 100 MG/5 ML SDV (FOR ANES.) ONE (13:22)
[2024-11-24 10:02] LABS: COAGULATION FACTOR X ACTIVITY 100 % Normal (70-150)
[2024-11-24] MEDS ORDERED: MORP1SOL PO (13:54)
[2024-11-24] MEDS ORDERED: MORP1SOL5 PO (15:30)
[2024-11-24] MEDS ORDERED: LEVS0.124 SL (15:54)
== END 2024-11-23 13:23 | disposition home health service (06) | DRG 193 ==
LOC: M ED 11:32 → EDBD 11:32 → M ED INP 16:06 → M PCU 11-09 17:16 → M ED INP 11-14 23:54 → M ICU 11-15 00:05 → M MSPAV 11-19 15:21
PROVIDERS: ADMIT General Practice; ATTEND Internal Medicine Nephrology
DX: J18.9 Pneumonia, unspecified organism (principal); J96.21 Acute and chronic respiratory failure with hypoxia; I21.A1 Myocardial infarction type 2; I50.33 Acute on chronic diastolic (congestive) heart failure; G93.41 Metabolic encephalopathy; J96.22 Acute and chronic respiratory failure with hypercapnia; A41.9 Sepsis, unspecified organism; C90.00 Multiple myeloma not having achieved remission; C79.51 Secondary malignant neoplasm of bone; I13.0 Hypertensive heart and chronic kidney disease with heart failure and stage 1 through stage 4 chronic kidney disease, or unspecified chronic kidney disease; J90 Pleural effusion, not elsewhere classified; C79.2 Secondary malignant neoplasm of skin; D61.818 Other pancytopenia; D84.9 Immunodeficiency, unspecified; M84.58XA Pathological fracture in neoplastic disease, other specified site, initial encounter for fracture; J98.11 Atelectasis; E87.0 Hyperosmolality and hypernatremia; D62 Acute posthemorrhagic anemia; K92.2 Gastrointestinal hemorrhage, unspecified; J44.0 Chronic obstructive pulmonary disease with (acute) lower respiratory infection; D80.1 Nonfamilial hypogammaglobulinemia; S22.080A Wedge compression fracture of T11-T12 vertebra, initial encounter for closed fracture; S32.030A Wedge compression fracture of third lumbar vertebra, initial encounter for closed fracture; E11.22 Type 2 diabetes mellitus with diabetic chronic kidney disease; E11.51 Type 2 diabetes mellitus with diabetic peripheral angiopathy without gangrene; D63.8 Anemia in other chronic diseases classified elsewhere; D69.6 Thrombocytopenia, unspecified; N18.9 Chronic kidney disease, unspecified; E78.00 Pure hypercholesterolemia, unspecified; I25.10 Atherosclerotic heart disease of native coronary artery without angina pectoris; I25.2 Old myocardial infarction; J45.909 Unspecified asthma, uncomplicated; I16.0 Hypertensive urgency; E78.5 Hyperlipidemia, unspecified; Z89.512 Acquired absence of left leg below knee; M19.90 Unspecified osteoarthritis, unspecified site; M54.9 Dorsalgia, unspecified; M48.061 Spinal stenosis, lumbar region without neurogenic claudication; E87.5 Hyperkalemia; J69.0 Pneumonitis due to inhalation of food and vomit; Z95.5 Presence of coronary angioplasty implant and graft; E83.42 Hypomagnesemia; R11.2 Nausea with vomiting, unspecified; G47.33 Obstructive sleep apnea (adult) (pediatric); E83.52 Hypercalcemia; E83.51 Hypocalcemia; J15.69 Pneumonia due to other Gram-negative bacteria

== ENCOUNTER 2024-11-14 11:15 | Outpatient (RCR) | payer OTHER, MEDICARE ==
[~2024-11-14 11:15] MED LIST changes: +CETI5TAB2 PO; +FAMO1TAB11 PO; +MAGN250T17 PO
[2024-11-23] MEDS ORDERED: PANT40TA29 PO (12:48)
[2024-11-23] MEDS ORDERED: SUCR1TA PO (12:48)
[2024-11-23] MEDS ORDERED: DOCU8.6T PO (12:48)
[2024-11-23] MEDS ORDERED: CARV25TA PO (12:48)
[2024-11-24] MEDS ORDERED: MORP1SOL PO (13:54)
[2024-11-24] MEDS ORDERED: MORP1SOL5 PO (15:30)
[2024-11-24] MEDS ORDERED: LEVS0.124 SL (15:54)
== END 2024-11-24 ==
LOC: M ONCR 11:15
PROVIDERS: ATTEND General Practice
DX: Z51.0 Encounter for antineoplastic radiation therapy (principal); C90.00 Multiple myeloma not having achieved remission